=== PATIENT | male | born 1975 | race Caucasian/White ===

== ENCOUNTER 2017-08-19 18:33 | Inpatient (IN) | payer MEDICAID, MEDICARE ==
[2017-08-19] MEDS ORDERED: Sodium Chloride 0.9% 1,000 ML IV ONE ×2 (19:20)
[2017-08-19 20:00] LABS: HEMATOCRIT 49.4 % (41.0-60); HEMOGLOBIN 16.8 gm/dL (12-16); LYMPHOCYTE ABSOLUTE 0.3 Th/cmm (1.5-3.0); MANUAL DIFF REQUIRED? YES; MEAN CORPUSCULAR HEMOGLOBIN 29.5 pg (26.0-30.0); MEAN CORPUSCULAR HGB CONC 33.9 pg (28.0-36.0); MEAN PLATELET VOLUME 10.3 fl; MONOCYTE ABSOLUTE 0.1 Th/cmm (0.3-1.0); NEUTROPHILE ABSOLUTE 9.3 Th/cmm (1.8-8.0); PLATELET COUNT 185 Th/cmm (150-400); RED BLOOD COUNT 5.68 Mil/cmm (4.30-5.70); WHITE BLOOD COUNT 9.7 Th/cmm (4.8-10.8)
[2017-08-19 20:13] LABS: INR 0.99 (0.5-1.4); PROTHROMBIN TIME (TEST) 10.3 SECONDS (9.5-11.5)
[2017-08-19 20:17] LABS: ALB/GLOB RATIO 1.3 (1.0-1.8); ALKALINE PHOSPHATASE 108 U/L (34-104); ANION GAP 11.9 (7.0-16.0); BILIRUBIN,TOTAL 0.5 mg/dL (0.3-1.0); BUN - UREA NITROGEN 18 mg/dL (7-25); CALCIUM SERUM 8.9 mg/dL (8.6-10.3); CARBON DIOXIDE 26.1 mEq/L (21.0-31.0); CHLORIDE 106 mEq/L (98-107); CREATININE - SERUM 0.6 mg/dL (0.7-1.3); GFR AFRICAN-AMERICAN > 60.0 ml/min (>90); GFR NON AFRICAN-AMERICAN > 60.0 ml/min; GLUCOSE 104 mg/dL; SGOT 28 U/L (13-39); SGPT/ALT 47 U/L (7-52); SODIUM SERUM 140 mEq/L (136-145); TOTAL PROTEIN,SERUM 7.2 gm/dL (6.0-8.3)
[2017-08-19 20:23] LABS: BAND NEUTROPHILE 3 % (0-10); LYMPHOCYTE 2 % (20-50); MONOCYTE 5 % (2-10); NEUTROPHILS 90 % (40-80)
--- NOTE | 2017-08-19 20:46 | ED Physician Chart ---
ED Chief Complaint/HPI - Patient Information Date Seen:: 08/19/17 Time Seen:: 19:20 Chief Complaint:: coffee ground emesis History of Present Illness:: location: general quality: coffee ground emesis severity: mild, mod duration: one day context: SNF pt with cerebral palsy and profound mental retardation had one episode of rosendo coffee ground emesis while at facility. SNF RN called PCP who advised go to ER for physician examination. medics report stable vital signs during transport to ER. on arrival pt in stable condition, no vomiting observed. pt is awake, moves all four limbs, but is at baseline - nonverbal. looks around the room. reaches toward examiner. occasional facial grimace. mod factors: none assoc s/s: none hx from SNF RN, and medic Allergies:: Allergies Allergy/AdvReac Type Severity Reaction Status Date / Time No Known Allergies Allergy Verified 08/19/17 18:48 Vitals:: Vital Signs - 8 hr 08/19/17 18:34 Temp 98.7 F HR 132 RR 19 BP 127/90 O2 Sat % 95 Historian:: EMS, Other Review:: Nurse's Note Reviewed, EMS run form Reviewed ED Review of Systems - Review of Systems General/Constitutional: No fever Cardio Vascular: No edema Pulmonary: No cough GI: Vomiting G/U: No hematuria Allergic/Immuno: No angioedema Neurological: No seizure ED Past Medical History - Past Medical History Past Medical History: PUD/GERD, Other (profound intellectual disability, cerebral palsy, seizure disorder, microcephaly, osteoporosis, gastrostomy, osteoporosis, hiatal hernia, anemia history) Family History: None Social History: Non Smoker, No Alcohol, No Drug Use, Single, Care Facility Surgical History: PEG/GTube Psychiatricy History: Other Medication: Reviewed Family Medical History - Family Member Mother History Unknown: Yes ED Physical Exam - Physical Examination General/Constitutional: Awake, Well-developed, well-nourished, Alert, No distress, Non-toxic appearing Head: Atraumatic Eyes: Lids, conjuctiva normal, PERRL Skin: Nl inspection, No rash, No skin lesions ENMT: External ears, nose nl Neck: Nontender, No nuchal rigidity, No stridor Respiratory: Nl effort/Exclusion, Clear to Auscultation, No Wheeze/Rhonchi/Rales Cardio Vascular: RRR, No murmur, gallop, rubs, NL S1 S2 GI: No tenderness/rebounding/guarding (pt with soft, scaphoid abdomen, facial grimace is observed during MD examination, abdomen is not rigid. no pelvic roll sign. these findings indicate pt with likely abdominal discomfort, exact cause and intensity unable to assess due to pt baseline neuro status, advise admission and further work up. ) : No CVA tenderness Extremities: No tenderness or effusion, No edema Neuro/Psych: Alert/oriented (alert, not oriented. non verbal) Misc: No paraspinal tenderness ED Labs/Radiology/EKG Results - Lab Results Results: Laboratory Tests 08/19/17 08/19/17 08/19/17 19:53 19:53 19:53 WBC 9.7 RBC 5.68 Hgb 16.8 Hct 49.4 MCV 87.0 MCH 29.5 MCHC Differential 33.9 RDW 12.0 Plt Count 185 MPV 10.3 Band Neutrophils % 3 Neutrophils (Manual) 90 H Lymphocytes 2 L Monocytes 5 PT 10.3 INR 0.99 Sodium 140 Potassium 4.0 Chloride 106 Carbon Dioxide 26.1 Anion Gap 11.9 BUN 18 Creatinine 0.6 L Est GFR ( Amer) > 60.0 Est GFR (Non-Af Amer) > 60.0 BUN/Creatinine Ratio 30.0 Glucose 104 Calcium 8.9 Total Bilirubin 0.5 AST 28 ALT 47 Alkaline Phosphatase 108 H Total Protein 7.2 Albumin 4.0 L Globulin 3.2 Albumin/Globulin Ratio 1.3 ED Assessment - Assessment General Assessment: medical decision making pt in stable condition while in ER. this patient poses difficulty in assessment due to severe mental retardation. unable to communicate with patient to assess for abdominal pain, nausea. pt with no vomiting on examination in ER. positive facial grimace on examination of abdomen. facial grimace on abdominal exam combined with reports of episode of coffee ground emesis in patient of this type warrants further evaluation. will advise admission and further evaluation. ED Septic Shock - . Is Septic Shock (SBP<90, OR Lactate>4 mmol\L) present?: No - <6hrs of presentation: Vital Signs: Vital Signs - 8 hr 08/19/17 18:34 Temp 98.7 F HR 132 RR 19 BP 127/90 O2 Sat % 95 ED Reassessment (Disposition) - Reassessment Reassessment:: pt in stable condition while in ER. Reassessment Condition:: Unchanged - Diagnosis Diagnosis:: upper GI bleed - Patient Disposition Discharge/Transfer:: Acute Care w/in this hosp Admitting Medical Physician:: Hai Centeno Time:: 20:55 Condition at Disposition:: Stable, Unchanged
[2017-08-19] MEDS ORDERED: Fleet Enema 135 mL RC PRN ×2 (22:37)
[2017-08-19] MEDS ORDERED: Magnesium Hydroxide (MOM) 30 mL UDC GT PRN ×2 (22:37)
[2017-08-19] MEDS ORDERED: Morphine Sulfate 2 mg/mL 1mL Syr IVP PRN ×2 (22:39)
[2017-08-19] MEDS: D5-0.45NS 1,000 ML IV SCH ×2 (23:57)
[2017-08-20 00:39] VITALS: BP 128/66
[2017-08-20] MEDS ORDERED: Pneumococcal Vaccine 0.5 mL Vial IM ONE ×2 (01:39)
[2017-08-20 06:22] LABS: % BASOPHILS 0.1 % (0.0-2.0); % EOSINOPHILS 0.6 % (0.0-5.0); % LYMPHOCYTES 13.4 % (20.0-50.0); % MONOCYTES 9.2 % (2.0-10.0); % NEUTROPHILS 76.7 % (40.0-80.0); HEMATOCRIT 47.7 % (41.0-60); HEMOGLOBIN 16.2 gm/dL (12-16); LYMPHOCYTE ABSOLUTE 0.8 Th/cmm (1.5-3.0); MEAN CELL VOLUME 87.4 fl (80-99); MEAN CORPUSCULAR HEMOGLOBIN 29.6 pg (26.0-30.0); MEAN CORPUSCULAR HGB CONC 33.8 pg (28.0-36.0); MEAN PLATELET VOLUME 10.1 fl; MONOCYTE ABSOLUTE 0.5 Th/cmm (0.3-1.0); NEUTROPHILE ABSOLUTE 4.3 Th/cmm (1.8-8.0); PLATELET COUNT 173 Th/cmm (150-400); RED BLOOD COUNT 5.46 Mil/cmm (4.30-5.70); RED CELL DISTRIBUTION WIDTH 12.5 % (11.5-20.0)
[2017-08-20 06:23] LABS: WHITE BLOOD COUNT 5.6 Th/cmm (4.8-10.8)
[2017-08-20 06:42] LABS: ANION GAP 9.3 (7.0-16.0); BUN - UREA NITROGEN 15 mg/dL (7-25); CALCIUM SERUM 8.3 mg/dL (8.6-10.3); CARBON DIOXIDE 21.4 mEq/L (21.0-31.0); CHLORIDE 107 mEq/L (98-107); CREATININE - SERUM 0.7 mg/dL (0.7-1.3); GFR AFRICAN-AMERICAN > 60.0 ml/min (>90); GFR NON AFRICAN-AMERICAN > 60.0 ml/min; GLUCOSE 116 mg/dL; MAGNESIUM 2.3 mg/dL (1.9-2.7); POTASSIUM SERUM 3.7 mEq/L (3.5-5.1); SODIUM SERUM 134 mEq/L (136-145)
--- NOTE | 2017-08-20 08:09 | Diagnostic Imaging Report ---
CHEST X-RAY: AP view INDICATION: Cough amount in the cysts COMPARISON: None FINDINGS: Small right effusion is noted. Low lung volumes are seen with increased interstitial lung markings and left midlung subsegmental atelectasis. Cardiomegaly is noted. No patient is rotated. Degenerative changes of the spine and shoulders are noted. IMPRESSION: Small right pleural effusion. Atelectasis versus infiltrate of the right lung base cannot be excluded. Cardiomegaly.
[2017-08-20] MEDS: Multivitamin w/ Minerals Tab GT SCH ×2 (08:42)
[2017-08-20] MEDS: Ferrous Sulfate 300 MG/5 ML UDC GT SCH ×2 (08:42)
[2017-08-20] MEDS ORDERED: [UNRECOGNIZED DRUG - OTHER] GT SCH ×2 (09:00)
--- NOTE | 2017-08-20 10:51 | Internal Medicine Prog Note ---
Internal Medicine Subjective - Subjective Service Date: 08/20/17 ([id number]) Internal Medicine Objective - Results Result Diagrams: 08/20/17 06:00 08/20/17 06:00 Recent Labs: Laboratory Last Values WBC 5.6 Th/cmm (4.8-10.8) D 08/20/17 06:00 RBC 5.46 Mil/cmm (4.30-5.70) 08/20/17 06:00 Hgb 16.2 gm/dL (12-16) 08/20/17 06:00 Hct 47.7 % (41.0-60) 08/20/17 06:00 MCV 87.4 fl (80-99) 08/20/17 06:00 MCH 29.6 pg (26.0-30.0) 08/20/17 06:00 MCHC Differential 33.8 pg (28.0-36.0) 08/20/17 06:00 RDW 12.5 % (11.5-20.0) 08/20/17 06:00 Plt Count 173 Th/cmm (150-400) 08/20/17 06:00 MPV 10.1 fl 08/20/17 06:00 Neutrophils % 76.7 % (40.0-80.0) 08/20/17 06:00 Band Neutrophils % 3 % (0-10) 08/19/17 19:53 Lymphocytes % 13.4 % (20.0-50.0) L 08/20/17 06:00 Monocytes % 9.2 % (2.0-10.0) 08/20/17 06:00 Eosinophils % 0.6 % (0.0-5.0) 08/20/17 06:00 Basophils % 0.1 % (0.0-2.0) 08/20/17 06:00 Neutrophils (Manual) 90 % (40-80) H 08/19/17 19:53 Lymphocytes 2 % (20-50) L 08/19/17 19:53 Monocytes 5 % (2-10) 08/19/17 19:53 PT 10.3 SECONDS (9.5-11.5) 08/19/17 19:53 INR 0.99 (0.5-1.4) 08/19/17 19:53 Sodium 134 mEq/L (136-145) L 08/20/17 06:00 Potassium 3.7 mEq/L (3.5-5.1) 08/20/17 06:00 Chloride 107 mEq/L (98-107) 08/20/17 06:00 Carbon Dioxide 21.4 mEq/L (21.0-31.0) 08/20/17 06:00 Anion Gap 9.3 (7.0-16.0) 08/20/17 06:00 BUN 15 mg/dL (7-25) 08/20/17 06:00 Creatinine 0.7 mg/dL (0.7-1.3) 08/20/17 06:00 Est GFR ( Amer) > 60.0 ml/min (>90) 08/20/17 06:00 Est GFR (Non-Af Amer) > 60.0 ml/min 08/20/17 06:00 BUN/Creatinine Ratio 21.4 08/20/17 06:00 Glucose 116 mg/dL 08/20/17 06:00 Calcium 8.3 mg/dL (8.6-10.3) L 08/20/17 06:00 Magnesium 2.3 mg/dL (1.9-2.7) 08/20/17 06:00 Total Bilirubin 0.5 mg/dL (0.3-1.0) 08/19/17 19:53 AST 28 U/L (13-39) 08/19/17 19:53 ALT 47 U/L (7-52) 08/19/17 19:53 Alkaline Phosphatase 108 U/L (34-104) H 08/19/17 19:53 Total Protein 7.2 gm/dL (6.0-8.3) 08/19/17 19:53 Albumin 4.0 gm/dL (4.2-5.5) L 08/19/17 19:53 Globulin 3.2 gm/dL 08/19/17 19:53 Albumin/Globulin Ratio 1.3 (1.0-1.8) 08/19/17 19:53 TSH 0.85 uIU/ml (0.34-5.60) 08/20/17 06:00 - Physical Exam Vitals and I&O: Vital Signs Temp 97.3 F 08/20/17 08:00 Pulse 114 08/20/17 08:00 Resp 18 08/20/17 08:09 BP 115/62 08/20/17 08:00 Pulse Ox 91 08/20/17 08:00 Intake & Output 08/19/17 08/20/17 08/20/17 18:59 06:59 18:59 Intake Total 0 Balance 0 Weight (lbs) 123 lb Intake: Oral 0 Other: # Voids 2 Active Medications: Current Medications Acetaminophen (Tylenol 650mg/20.3ml Suspension) 650 mg GT Q4H PRN PRN Reason: Pain (Mild) Stop: 10/18/17 23:11 Acetaminophen (Tylenol 650mg/20.3ml Suspension) 650 mg GT Q4H PRN PRN Reason: Fever > 101 Stop: 10/18/17 23:11 Alendronate Sodium (Fosamax) 70 mg PO QWEEK 729 [facility] Stop: 10/18/17 22:44 Ascorbic Acid (Vitamin C) 500 mg PO BID [facility] Stop: 10/19/17 08:59 Last Admin: 08/20/17 08:42 Dose: Not Given Bisacodyl (Dulcolax 10 Mg Supp) 10 mg RC DAILY PRN PRN Reason: Constipation Stop: 10/18/17 22:36 Ferrous Sulfate (Iron) 220 mg GT DAILY [facility] Stop: 10/19/17 08:59 Last Admin: 08/20/17 08:42 Dose: Not Given Glycopyrrolate (Robinul) 1 mg PO BID [facility] Stop: 10/19/17 08:59 Last Admin: 08/20/17 08:42 Dose: Not Given Dextrose/Sodium Chloride (D5-0.45ns) 1,000 mls @ 80 mls/hr IV .[id number] [facility] Stop: 10/18/17 22:44 Last Admin: 08/19/17 23:57 Dose: 80 mls/hr Magnesium Hydroxide (Milk Of Magnesia) 30 ml GT DAILY PRN PRN Reason: Constipation Stop: 10/18/17 22:36 Metoclopramide HCl (Reglan) 5 mg PO TID [facility] Stop: 08/26/17 13:59 Miscellaneous (Nut.Sup,Spec.Frm,L-Fr,Iron/Fos [Twocal Hn Liquid]) 1,000 ml GT DAILY [facility] Stop: 10/19/17 08:59 Morphine Sulfate (Morphine) 2 mg IVP Q4H PRN PRN Reason: Pain (Severe) Stop: 10/18/17 22:38 Ondansetron HCl (Zofran) 4 mg IV Q8H PRN PRN Reason: Nausea / Vomiting Stop: 10/18/17 22:38 Oxcarbazepine (Trileptal) 600 mg GT BID [facility] Stop: 10/19/17 08:59 Last Admin: 08/20/17 08:43 Dose: Not Given Pantoprazole Sodium (Protonix) 40 mg IVP BID [facility] Stop: 10/19/17 08:59 Last Admin: 08/20/17 08:42 Dose: 40 mg Polyethylene Glycol (Miralax) 17 gm GT QPM [facility] Stop: 10/19/17 16:59 Sodium Phosphate (Fleet Enema) 135 ml RC DAILY PRN PRN Reason: Constipation Stop: 10/18/17 22:36 - Procedures Procedures: Procedures Procedure Code Date CHANGE GASTROSTOMY TUBE 29667 12/15/01 REPLACE GASTROSTOMY TUBE 97.02 12/15/01 Internal Medicine Assmt/Plan - Assessment Assessment: HEALTHCARE FACILITY ASSOCIATED PNA ACUTE GI BLEED ANEMIA CEREBRAL PALSY SEIZURES OSTEOPOROSIS HIATAL HERNIA GERD
--- NOTE | 2017-08-20 10:51 | Internal Medicine Prog Note ---
Internal Medicine Subjective - Subjective Service Date: 08/20/17 ([id number]) Internal Medicine Objective - Results Result Diagrams: 08/20/17 06:00 08/20/17 06:00 Recent Labs: Laboratory Last Values WBC 5.6 Th/cmm (4.8-10.8) D 08/20/17 06:00 RBC 5.46 Mil/cmm (4.30-5.70) 08/20/17 06:00 Hgb 16.2 gm/dL (12-16) 08/20/17 06:00 Hct 47.7 % (41.0-60) 08/20/17 06:00 MCV 87.4 fl (80-99) 08/20/17 06:00 MCH 29.6 pg (26.0-30.0) 08/20/17 06:00 MCHC Differential 33.8 pg (28.0-36.0) 08/20/17 06:00 RDW 12.5 % (11.5-20.0) 08/20/17 06:00 Plt Count 173 Th/cmm (150-400) 08/20/17 06:00 MPV 10.1 fl 08/20/17 06:00 Neutrophils % 76.7 % (40.0-80.0) 08/20/17 06:00 Band Neutrophils % 3 % (0-10) 08/19/17 19:53 Lymphocytes % 13.4 % (20.0-50.0) L 08/20/17 06:00 Monocytes % 9.2 % (2.0-10.0) 08/20/17 06:00 Eosinophils % 0.6 % (0.0-5.0) 08/20/17 06:00 Basophils % 0.1 % (0.0-2.0) 08/20/17 06:00 Neutrophils (Manual) 90 % (40-80) H 08/19/17 19:53 Lymphocytes 2 % (20-50) L 08/19/17 19:53 Monocytes 5 % (2-10) 08/19/17 19:53 PT 10.3 SECONDS (9.5-11.5) 08/19/17 19:53 INR 0.99 (0.5-1.4) 08/19/17 19:53 Sodium 134 mEq/L (136-145) L 08/20/17 06:00 Potassium 3.7 mEq/L (3.5-5.1) 08/20/17 06:00 Chloride 107 mEq/L (98-107) 08/20/17 06:00 Carbon Dioxide 21.4 mEq/L (21.0-31.0) 08/20/17 06:00 Anion Gap 9.3 (7.0-16.0) 08/20/17 06:00 BUN 15 mg/dL (7-25) 08/20/17 06:00 Creatinine 0.7 mg/dL (0.7-1.3) 08/20/17 06:00 Est GFR ( Amer) > 60.0 ml/min (>90) 08/20/17 06:00 Est GFR (Non-Af Amer) > 60.0 ml/min 08/20/17 06:00 BUN/Creatinine Ratio 21.4 08/20/17 06:00 Glucose 116 mg/dL 08/20/17 06:00 Calcium 8.3 mg/dL (8.6-10.3) L 08/20/17 06:00 Magnesium 2.3 mg/dL (1.9-2.7) 08/20/17 06:00 Total Bilirubin 0.5 mg/dL (0.3-1.0) 08/19/17 19:53 AST 28 U/L (13-39) 08/19/17 19:53 ALT 47 U/L (7-52) 08/19/17 19:53 Alkaline Phosphatase 108 U/L (34-104) H 08/19/17 19:53 Total Protein 7.2 gm/dL (6.0-8.3) 08/19/17 19:53 Albumin 4.0 gm/dL (4.2-5.5) L 08/19/17 19:53 Globulin 3.2 gm/dL 08/19/17 19:53 Albumin/Globulin Ratio 1.3 (1.0-1.8) 08/19/17 19:53 TSH 0.85 uIU/ml (0.34-5.60) 08/20/17 06:00 - Physical Exam Vitals and I&O: Vital Signs Temp 97.3 F 08/20/17 08:00 Pulse 114 08/20/17 08:00 Resp 18 08/20/17 08:09 BP 115/62 08/20/17 08:00 Pulse Ox 91 08/20/17 08:00 Intake & Output 08/19/17 08/20/17 08/20/17 18:59 06:59 18:59 Intake Total 0 Balance 0 Weight (lbs) 123 lb Intake: Oral 0 Other: # Voids 2 Active Medications: Current Medications Acetaminophen (Tylenol 650mg/20.3ml Suspension) 650 mg GT Q4H PRN PRN Reason: Pain (Mild) Stop: 10/18/17 23:11 Acetaminophen (Tylenol 650mg/20.3ml Suspension) 650 mg GT Q4H PRN PRN Reason: Fever > 101 Stop: 10/18/17 23:11 Alendronate Sodium (Fosamax) 70 mg PO QWEEK 729 [facility] Stop: 10/18/17 22:44 Ascorbic Acid (Vitamin C) 500 mg PO BID [facility] Stop: 10/19/17 08:59 Last Admin: 08/20/17 08:42 Dose: Not Given Bisacodyl (Dulcolax 10 Mg Supp) 10 mg RC DAILY PRN PRN Reason: Constipation Stop: 10/18/17 22:36 Ferrous Sulfate (Iron) 220 mg GT DAILY [facility] Stop: 10/19/17 08:59 Last Admin: 08/20/17 08:42 Dose: Not Given Glycopyrrolate (Robinul) 1 mg PO BID [facility] Stop: 10/19/17 08:59 Last Admin: 08/20/17 08:42 Dose: Not Given Dextrose/Sodium Chloride (D5-0.45ns) 1,000 mls @ 80 mls/hr IV .[id number] [facility] Stop: 10/18/17 22:44 Last Admin: 08/19/17 23:57 Dose: 80 mls/hr Magnesium Hydroxide (Milk Of Magnesia) 30 ml GT DAILY PRN PRN Reason: Constipation Stop: 10/18/17 22:36 Metoclopramide HCl (Reglan) 5 mg PO TID [facility] Stop: 08/26/17 13:59 Miscellaneous (Nut.Sup,Spec.Frm,L-Fr,Iron/Fos [Twocal Hn Liquid]) 1,000 ml GT DAILY [facility] Stop: 10/19/17 08:59 Morphine Sulfate (Morphine) 2 mg IVP Q4H PRN PRN Reason: Pain (Severe) Stop: 10/18/17 22:38 Ondansetron HCl (Zofran) 4 mg IV Q8H PRN PRN Reason: Nausea / Vomiting Stop: 10/18/17 22:38 Oxcarbazepine (Trileptal) 600 mg GT BID [facility] Stop: 10/19/17 08:59 Last Admin: 08/20/17 08:43 Dose: Not Given Pantoprazole Sodium (Protonix) 40 mg IVP BID [facility] Stop: 10/19/17 08:59 Last Admin: 08/20/17 08:42 Dose: 40 mg Polyethylene Glycol (Miralax) 17 gm GT QPM [facility] Stop: 10/19/17 16:59 Sodium Phosphate (Fleet Enema) 135 ml RC DAILY PRN PRN Reason: Constipation Stop: 10/18/17 22:36 - Procedures Procedures: Procedures Procedure Code Date CHANGE GASTROSTOMY TUBE 97579 12/15/01 REPLACE GASTROSTOMY TUBE 97.02 12/15/01 Internal Medicine Assmt/Plan - Assessment Assessment: HEALTHCARE FACILITY ASSOCIATED PNA ACUTE GI BLEED ANEMIA CEREBRAL PALSY SEIZURES OSTEOPOROSIS HIATAL HERNIA GERD
--- NOTE | 2017-08-20 10:51 | Internal Medicine Prog Note ---
Internal Medicine Subjective - Subjective Service Date: 08/20/17 ([id number]) Internal Medicine Objective - Results Result Diagrams: 08/20/17 06:00 08/20/17 06:00 Recent Labs: Laboratory Last Values WBC 5.6 Th/cmm (4.8-10.8) D 08/20/17 06:00 RBC 5.46 Mil/cmm (4.30-5.70) 08/20/17 06:00 Hgb 16.2 gm/dL (12-16) 08/20/17 06:00 Hct 47.7 % (41.0-60) 08/20/17 06:00 MCV 87.4 fl (80-99) 08/20/17 06:00 MCH 29.6 pg (26.0-30.0) 08/20/17 06:00 MCHC Differential 33.8 pg (28.0-36.0) 08/20/17 06:00 RDW 12.5 % (11.5-20.0) 08/20/17 06:00 Plt Count 173 Th/cmm (150-400) 08/20/17 06:00 MPV 10.1 fl 08/20/17 06:00 Neutrophils % 76.7 % (40.0-80.0) 08/20/17 06:00 Band Neutrophils % 3 % (0-10) 08/19/17 19:53 Lymphocytes % 13.4 % (20.0-50.0) L 08/20/17 06:00 Monocytes % 9.2 % (2.0-10.0) 08/20/17 06:00 Eosinophils % 0.6 % (0.0-5.0) 08/20/17 06:00 Basophils % 0.1 % (0.0-2.0) 08/20/17 06:00 Neutrophils (Manual) 90 % (40-80) H 08/19/17 19:53 Lymphocytes 2 % (20-50) L 08/19/17 19:53 Monocytes 5 % (2-10) 08/19/17 19:53 PT 10.3 SECONDS (9.5-11.5) 08/19/17 19:53 INR 0.99 (0.5-1.4) 08/19/17 19:53 Sodium 134 mEq/L (136-145) L 08/20/17 06:00 Potassium 3.7 mEq/L (3.5-5.1) 08/20/17 06:00 Chloride 107 mEq/L (98-107) 08/20/17 06:00 Carbon Dioxide 21.4 mEq/L (21.0-31.0) 08/20/17 06:00 Anion Gap 9.3 (7.0-16.0) 08/20/17 06:00 BUN 15 mg/dL (7-25) 08/20/17 06:00 Creatinine 0.7 mg/dL (0.7-1.3) 08/20/17 06:00 Est GFR ( Amer) > 60.0 ml/min (>90) 08/20/17 06:00 Est GFR (Non-Af Amer) > 60.0 ml/min 08/20/17 06:00 BUN/Creatinine Ratio 21.4 08/20/17 06:00 Glucose 116 mg/dL 08/20/17 06:00 Calcium 8.3 mg/dL (8.6-10.3) L 08/20/17 06:00 Magnesium 2.3 mg/dL (1.9-2.7) 08/20/17 06:00 Total Bilirubin 0.5 mg/dL (0.3-1.0) 08/19/17 19:53 AST 28 U/L (13-39) 08/19/17 19:53 ALT 47 U/L (7-52) 08/19/17 19:53 Alkaline Phosphatase 108 U/L (34-104) H 08/19/17 19:53 Total Protein 7.2 gm/dL (6.0-8.3) 08/19/17 19:53 Albumin 4.0 gm/dL (4.2-5.5) L 08/19/17 19:53 Globulin 3.2 gm/dL 08/19/17 19:53 Albumin/Globulin Ratio 1.3 (1.0-1.8) 08/19/17 19:53 TSH 0.85 uIU/ml (0.34-5.60) 08/20/17 06:00 - Physical Exam Vitals and I&O: Vital Signs Temp 97.3 F 08/20/17 08:00 Pulse 114 08/20/17 08:00 Resp 18 08/20/17 08:09 BP 115/62 08/20/17 08:00 Pulse Ox 91 08/20/17 08:00 Intake & Output 08/19/17 08/20/17 08/20/17 18:59 06:59 18:59 Intake Total 0 Balance 0 Weight (lbs) 123 lb Intake: Oral 0 Other: # Voids 2 Active Medications: Current Medications Acetaminophen (Tylenol 650mg/20.3ml Suspension) 650 mg GT Q4H PRN PRN Reason: Pain (Mild) Stop: 10/18/17 23:11 Acetaminophen (Tylenol 650mg/20.3ml Suspension) 650 mg GT Q4H PRN PRN Reason: Fever > 101 Stop: 10/18/17 23:11 Alendronate Sodium (Fosamax) 70 mg PO QWEEK 729 [facility] Stop: 10/18/17 22:44 Ascorbic Acid (Vitamin C) 500 mg PO BID [facility] Stop: 10/19/17 08:59 Last Admin: 08/20/17 08:42 Dose: Not Given Bisacodyl (Dulcolax 10 Mg Supp) 10 mg RC DAILY PRN PRN Reason: Constipation Stop: 10/18/17 22:36 Ferrous Sulfate (Iron) 220 mg GT DAILY [facility] Stop: 10/19/17 08:59 Last Admin: 08/20/17 08:42 Dose: Not Given Glycopyrrolate (Robinul) 1 mg PO BID [facility] Stop: 10/19/17 08:59 Last Admin: 08/20/17 08:42 Dose: Not Given Dextrose/Sodium Chloride (D5-0.45ns) 1,000 mls @ 80 mls/hr IV .[id number] [facility] Stop: 10/18/17 22:44 Last Admin: 08/19/17 23:57 Dose: 80 mls/hr Magnesium Hydroxide (Milk Of Magnesia) 30 ml GT DAILY PRN PRN Reason: Constipation Stop: 10/18/17 22:36 Metoclopramide HCl (Reglan) 5 mg PO TID [facility] Stop: 08/26/17 13:59 Miscellaneous (Nut.Sup,Spec.Frm,L-Fr,Iron/Fos [Twocal Hn Liquid]) 1,000 ml GT DAILY [facility] Stop: 10/19/17 08:59 Morphine Sulfate (Morphine) 2 mg IVP Q4H PRN PRN Reason: Pain (Severe) Stop: 10/18/17 22:38 Ondansetron HCl (Zofran) 4 mg IV Q8H PRN PRN Reason: Nausea / Vomiting Stop: 10/18/17 22:38 Oxcarbazepine (Trileptal) 600 mg GT BID [facility] Stop: 10/19/17 08:59 Last Admin: 08/20/17 08:43 Dose: Not Given Pantoprazole Sodium (Protonix) 40 mg IVP BID [facility] Stop: 10/19/17 08:59 Last Admin: 08/20/17 08:42 Dose: 40 mg Polyethylene Glycol (Miralax) 17 gm GT QPM [facility] Stop: 10/19/17 16:59 Sodium Phosphate (Fleet Enema) 135 ml RC DAILY PRN PRN Reason: Constipation Stop: 10/18/17 22:36 - Procedures Procedures: Procedures Procedure Code Date CHANGE GASTROSTOMY TUBE 25147 12/15/01 REPLACE GASTROSTOMY TUBE 97.02 12/15/01 Internal Medicine Assmt/Plan - Assessment Assessment: HEALTHCARE FACILITY ASSOCIATED PNA ACUTE GI BLEED ANEMIA CEREBRAL PALSY SEIZURES OSTEOPOROSIS HIATAL HERNIA GERD
--- NOTE | 2017-08-20 12:23 | History & Physical ---
ADMIT DATE: CHIEF COMPLAINT: Coffee-ground emesis. HISTORY OF PRESENT ILLNESS: This is a 42-year-old male who is a resident of [facility] who is brought here to [facility] for 1-day history of coffee-ground emesis. The [facility] not [facility] fevers at the [facility]. For further management, the patient is now admitted to the med/surg unit. PAST MEDICAL HISTORY: Profound intellectual disability, cerebral palsy, history of seizure, microcephaly, osteoporosis, gastrostomy status, mild peptic ulcer disease, GERD, hiatal hernia, and anemia. PAST SURGICAL HISTORY: PEG. SOCIAL HISTORY: The patient is a [facility] resident, requiring 24-hour nursing care. MEDICATIONS: Please see medication reconciliation. FAMILY HISTORY: Noncontributory. REVIEW OF SYSTEMS: Unable to obtain, the patient is nonverbal. PHYSICAL EXAMINATION: GENERAL: The patient is well developed, well nourished, and in no acute stress. VITAL SIGNS: Temperature 97.3, heart rate 114, blood pressure 115/62, respirations 18, and O2 91%. HEENT: Head is normocephalic and atraumatic. NECK: Supple. No mass. LUNGS: Clear bilaterally. ABDOMEN: Soft and nontender. LABORATORY DATA: WBC 5.6, H and H of 16.2 and 47.7, and platelet of 173. Sodium 134, potassium 2.7, chloride 107, BUN 15, and creatinine 0.7. Calcium 8.3 and albumin 4.0. DIAGNOSTIC STUDIES: The patient had a chest x-ray done and the impression is small right pleural effusion, atelectasis versus infiltrate of the right lung base cannot be excluded. ASSESSMENT: Acute gastrointestinal bleed, health-care facility associated pneumonia, hyponatremia, hypocalcemia, profound intellectual disability, cerebral palsy, seizure disorder, microcephaly, osteoporosis, gastrostomy status, gastroesophageal reflux disease, hiatal hernia, and anemia. PLAN: The patient to be admitted to the med/surg unit. We will keep the patient n.p.o. for now. The patient will have a GI consultation. Keep the patient on IV fluids for hydration. We will put the patient on impaired IV antibiotics. We will get a followup chest x-ray. We will continue to follow this patient. [facility]# [id number]
--- NOTE | 2017-08-20 12:23 | History & Physical ---
ADMIT DATE: CHIEF COMPLAINT: Coffee-ground emesis. HISTORY OF PRESENT ILLNESS: This is a 42-year-old male who is a resident of [facility] who is brought here to [facility] for 1-day history of coffee-ground emesis. The patient did not have any fevers at the halfway. For further management, the patient is now admitted to the med/surg unit. PAST MEDICAL HISTORY: Profound intellectual disability, cerebral palsy, history of seizure, microcephaly, osteoporosis, gastrostomy status, mild peptic ulcer disease, GERD, hiatal hernia, and anemia. PAST SURGICAL HISTORY: PEG. SOCIAL HISTORY: The patient is a halfway resident, requiring 24-hour nursing care. MEDICATIONS: Please see medication reconciliation. FAMILY HISTORY: Noncontributory. REVIEW OF SYSTEMS: Unable to obtain, the patient is nonverbal. PHYSICAL EXAMINATION: GENERAL: The patient is well developed, well nourished, and in no acute stress. VITAL SIGNS: Temperature 97.3, heart rate 114, blood pressure 115/62, respirations 18, and O2 91%. HEENT: Head is normocephalic and atraumatic. NECK: Supple. No mass. LUNGS: Clear bilaterally. ABDOMEN: Soft and nontender. LABORATORY DATA: WBC 5.6, H and H of 16.2 and 47.7, and platelet of 173. Sodium 134, potassium 2.7, chloride 107, BUN 15, and creatinine 0.7. Calcium 8.3 and albumin 4.0. DIAGNOSTIC STUDIES: The patient had a chest x-ray done and the impression is small right pleural effusion, atelectasis versus infiltrate of the right lung base cannot be excluded. ASSESSMENT: Acute gastrointestinal bleed, health-care facility associated pneumonia, hyponatremia, hypocalcemia, profound intellectual disability, cerebral palsy, seizure disorder, microcephaly, osteoporosis, gastrostomy status, gastroesophageal reflux disease, hiatal hernia, and anemia. PLAN: The patient to be admitted to the med/surg unit. We will keep the patient n.p.o. for now. The patient will have a GI consultation. Keep the patient on IV fluids for hydration. We will put the patient on impaired IV antibiotics. We will get a followup chest x-ray. We will continue to follow this patient. [facility]# [id number]
--- NOTE | 2017-08-20 12:23 | History & Physical ---
ADMIT DATE: CHIEF COMPLAINT: Coffee-ground emesis. HISTORY OF PRESENT ILLNESS: This is a 42-year-old male who is a resident of [facility] who is brought here to [facility] for 1-day history of coffee-ground emesis. The patient did not have any fevers at the senior living. For further management, the patient is now admitted to the med/surg unit. PAST MEDICAL HISTORY: Profound intellectual disability, cerebral palsy, history of seizure, microcephaly, osteoporosis, gastrostomy status, mild peptic ulcer disease, GERD, hiatal hernia, and anemia. PAST SURGICAL HISTORY: PEG. SOCIAL HISTORY: The patient is a senior living resident, requiring 24-hour nursing care. MEDICATIONS: Please see medication reconciliation. FAMILY HISTORY: Noncontributory. REVIEW OF SYSTEMS: Unable to obtain, the patient is nonverbal. PHYSICAL EXAMINATION: GENERAL: The patient is well developed, well nourished, and in no acute stress. VITAL SIGNS: Temperature 97.3, heart rate 114, blood pressure 115/62, respirations 18, and O2 91%. HEENT: Head is normocephalic and atraumatic. NECK: Supple. No mass. LUNGS: Clear bilaterally. ABDOMEN: Soft and nontender. LABORATORY DATA: WBC 5.6, H and H of 16.2 and 47.7, and platelet of 173. Sodium 134, potassium 2.7, chloride 107, BUN 15, and creatinine 0.7. Calcium 8.3 and albumin 4.0. DIAGNOSTIC STUDIES: The patient had a chest x-ray done and the impression is small right pleural effusion, atelectasis versus infiltrate of the right lung base cannot be excluded. ASSESSMENT: Acute gastrointestinal bleed, health-care facility associated pneumonia, hyponatremia, hypocalcemia, profound intellectual disability, cerebral palsy, seizure disorder, microcephaly, osteoporosis, gastrostomy status, gastroesophageal reflux disease, hiatal hernia, and anemia. PLAN: The patient to be admitted to the med/surg unit. We will keep the patient n.p.o. for now. The patient will have a GI consultation. Keep the patient on IV fluids for hydration. We will put the patient on impaired IV antibiotics. We will get a followup chest x-ray. We will continue to follow this patient. [facility]# [id number]
[2017-08-20] MEDS: Azithromycin 500 MG in Sodium Chloride 0.9% 250 ML IV SCH (15:15)
[2017-08-20] MEDS: POLYETHYLENE GLYCOL 3350 17 GM PACK GT SCH ×2 (16:44)
[2017-08-20] MEDS: D5-0.45NS 1,000 ML IV SCH ×2 (18:08)
[2017-08-21] MEDS: D5-0.45NS 1,000 ML IV SCH ×4 (05:34→21:50)
[2017-08-21 06:12] LABS: HEMOGLOBIN 14.5 gm/dL (12-16); MANUAL DIFF REQUIRED? YES
[2017-08-21 06:20] LABS: MEAN CELL VOLUME 87.4 fl (80-99); MEAN CORPUSCULAR HEMOGLOBIN 29.7 pg (26.0-30.0); MEAN PLATELET VOLUME 10.1 fl; PLATELET COUNT 158 Th/cmm (150-400); RED BLOOD COUNT 4.88 Mil/cmm (4.30-5.70); RED CELL DISTRIBUTION WIDTH 12.5 % (11.5-20.0)
[2017-08-21 06:39] LABS: ANION GAP 8.3 (7.0-16.0); BUN - UREA NITROGEN 11 mg/dL (7-25); CALCIUM SERUM 7.6 mg/dL (8.6-10.3); CARBON DIOXIDE 24.3 mEq/L (21.0-31.0); CHLORIDE 108 mEq/L (98-107); CREATININE - SERUM 0.6 mg/dL (0.7-1.3); GFR AFRICAN-AMERICAN > 60.0 ml/min (>90); GFR NON AFRICAN-AMERICAN > 60.0 ml/min; GLUCOSE 109 mg/dL; POTASSIUM SERUM 3.6 mEq/L (3.5-5.1); SODIUM SERUM 137 mEq/L (136-145)
--- NOTE | 2017-08-21 06:42 | Consultation ---
DATE OF CONSULTATION: 08/20/2017 INPATIENT GI CONSULTATION CONSULTING PHYSICIAN: Dr. Centeno. REASON FOR CONSULTATION: Coffee-ground emesis. HISTORY OF PRESENT ILLNESS: The patient is a 42-year-old male with history of cerebral palsy and seizure disorder and developmental delay, who comes into the hospital with reported coffee-ground emesis yesterday. Most of the history is obtained from the patient's mother and the chart and the nursing staff as the patient is unable to communicate. There is a report that the patient had a large amount of vomiting yesterday and that there was a coffee-ground color to this. Thus, the patient was admitted to the hospital for further evaluation. There is no history of melena or blood in the stool as per report. Of note, the patient does have a G-tube and is dependent on this for feeds. PAST MEDICAL HISTORY: Cerebral palsy, acid reflux by report, seizure disorder. PAST SURGICAL HISTORY: G-tube placement. FAMILY HISTORY: Noncontributory. ALLERGIES: No known drug allergies. SOCIAL HISTORY: The patient is a permanent resident of a nursing facility. There is no history of alcohol or drug use. REVIEW OF SYSTEMS: Not possible given the patient's reduced mental status. CURRENT MEDICATIONS: Tylenol as needed, Fosamax, vitamin C, bisacodyl, iron, Robinul, milk of magnesia, morphine as needed, Zofran as needed, Trileptal, Protonix b.i.d., MiraLax. PHYSICAL EXAMINATION: VITAL SIGNS: The temperature is 97.2 Fahrenheit, blood pressure 128/66, pulse is 120 beats per minute, oxygenation 94% on room air. GENERAL: The patient is lying on his side in bed, noncommunicative, alert and oriented x 0. HEAD, EARS, EYES, NOSE, AND THROAT: Pupils appeared equal and reactive to light. Extraocular muscles are intact. Moist mucous membranes. Microcephaly is noted. NECK: No obvious JVD, thyromegaly, or lymphadenopathy. CHEST: Clear to auscultation. CARDIOVASCULAR: S1 and S2 are present, regular rate and rhythm. ABDOMEN: There is a G-tube which the site is clean and dry and intact. There is no obvious tenderness to palpation, guarding, or rebound. No distention. EXTREMITIES: No pitting edema. Positive pulses. SKIN: No obvious jaundice or other rashes. LABORATORY DATA: White blood cell count 9.7, hemoglobin 16.8, platelet count 185. INR 0.9. Sodium 140, BUN 18, creatinine 0.6. AST 28, ALT 47, alkaline phosphatase is 108, total bilirubin 0.5. IMAGING: A chest x-ray was performed and showed small right pleural effusion, atelectasis of the right lung cannot be excluded, cardiomegaly. IMPRESSION: This is a 42-year-old male with cerebral palsy, developmental delay and seizure disorder, who comes into the hospital with one day of vomiting and coffee-ground emesis. 1. Coffee-ground emesis. 2. Seizure disorder. 3. Cerebral palsy. 4. History of developmental delay. 5. History of G-tube dependence. DISCUSSION: I had a discussion with this patient's mother about the possibility of doing endoscopy. At this point, she wants to pursue conservative measures given the patient's hemoglobin is stable and he has no further episodes of any vomiting. She wants to spare her son any invasive procedures if possible. If the patient does exhibit any sign of further bleeding or has a significant drop in his hemoglobin level, she would then be okay to pursue endoscopy. At this point, we will not plan on this. RECOMMENDATIONS: 1. We can treat the patient for presumed esophagitis or peptic ulcer disease with b.i.d. PPI therapy for 1 month and then daily after that. 2. Can resume G-tube feeding at a slow rate now and increase as tolerated. 3. We will put the patient on an antiemetic to encourage gastric motility and prevent vomiting. We will likely use Reglan. 4. Other care as per primary. Thank you for allowing me to participate in this patient's care. Please call with any further questions. JOB# [id number]
[2017-08-21 07:05] LABS: WHITE BLOOD COUNT 3.3 Th/cmm (4.8-10.8)
[2017-08-21 07:47] LABS: BAND NEUTROPHILE 3 % (0-10); EOSINOPHIL 4 % (0-5); LYMPHOCYTE 31 % (20-50); MONOCYTE 8 % (2-10); NEUTROPHILS 54 % (40-80); TOTAL CELLS COUNTED 100
[2017-08-21 07:48] LABS: HEMATOCRIT 42.6 % (41.0-60)
--- NOTE | 2017-08-21 08:08 | GI Progress Note ---
Subjective - Review of Systems Service Date: 08/21/17 Subjective: Report of vomiting 30cc last night, non bloody. Objective - Results Result Diagrams: 08/21/17 05:55 08/21/17 05:55 Recent Labs: Laboratory Last Values WBC 3.3 Th/cmm (4.8-10.8) L D 08/21/17 05:55 RBC 4.88 Mil/cmm (4.30-5.70) 08/21/17 05:55 Hgb 14.5 gm/dL (12-16) 08/21/17 05:55 Hct 42.6 % (41.0-60) D 08/21/17 05:55 MCV 87.4 fl (80-99) 08/21/17 05:55 MCH 29.7 pg (26.0-30.0) 08/21/17 05:55 MCHC Differential 34.0 pg (28.0-36.0) 08/21/17 05:55 RDW 12.5 % (11.5-20.0) 08/21/17 05:55 Plt Count 158 Th/cmm (150-400) 08/21/17 05:55 MPV 10.1 fl 08/21/17 05:55 Neutrophils % DINKEY LOCOMOTIVE OPERATOR 08/21/17 05:55 Band Neutrophils % 3 % (0-10) 08/21/17 05:55 Lymphocytes % DINKEY LOCOMOTIVE OPERATOR 08/21/17 05:55 Monocytes % DINKEY LOCOMOTIVE OPERATOR 08/21/17 05:55 Eosinophils % DINKEY LOCOMOTIVE OPERATOR 08/21/17 05:55 Basophils % DINKEY LOCOMOTIVE OPERATOR 08/21/17 05:55 Neutrophils (Manual) 54 % (40-80) 08/21/17 05:55 Lymphocytes 31 % (20-50) 08/21/17 05:55 Monocytes 8 % (2-10) 08/21/17 05:55 Eosinophils 4 % (0-5) 08/21/17 05:55 PT 10.3 SECONDS (9.5-11.5) 08/19/17 19:53 INR 0.99 (0.5-1.4) 08/19/17 19:53 Sodium 137 mEq/L (136-145) 08/21/17 05:55 Potassium 3.6 mEq/L (3.5-5.1) 08/21/17 05:55 Chloride 108 mEq/L (98-107) H 08/21/17 05:55 Carbon Dioxide 24.3 mEq/L (21.0-31.0) 08/21/17 05:55 Anion Gap 8.3 (7.0-16.0) 08/21/17 05:55 BUN 11 mg/dL (7-25) 08/21/17 05:55 Creatinine 0.6 mg/dL (0.7-1.3) L 08/21/17 05:55 Est GFR ( Amer) > 60.0 ml/min (>90) 08/21/17 05:55 Est GFR (Non-Af Amer) > 60.0 ml/min 08/21/17 05:55 BUN/Creatinine Ratio 18.3 08/21/17 05:55 Glucose 109 mg/dL 08/21/17 05:55 Calcium 7.6 mg/dL (8.6-10.3) L 08/21/17 05:55 Magnesium 2.3 mg/dL (1.9-2.7) 08/20/17 06:00 Total Bilirubin 0.5 mg/dL (0.3-1.0) 08/19/17 19:53 AST 28 U/L (13-39) 08/19/17 19:53 ALT 47 U/L (7-52) 08/19/17 19:53 Alkaline Phosphatase 108 U/L (34-104) H 08/19/17 19:53 Total Protein 7.2 gm/dL (6.0-8.3) 08/19/17 19:53 Albumin 4.0 gm/dL (4.2-5.5) L 08/19/17 19:53 Globulin 3.2 gm/dL 08/19/17 19:53 Albumin/Globulin Ratio 1.3 (1.0-1.8) 08/19/17 19:53 TSH 0.85 uIU/ml (0.34-5.60) 08/20/17 06:00 - Physical Exam Vitals and I&O: Vital Signs Temp 97.4 F 08/21/17 04:00 Pulse 101 08/21/17 04:00 Resp 19 08/21/17 04:00 BP 104/68 08/21/17 04:00 Pulse Ox 97 08/21/17 04:00 Intake & Output 11/04/2908/21/17 08/21/17 18:59 06:59 18:59 Intake Total 1590 1154.667 Output Total 400 Balance 1590 754.667 Weight (lbs) 55.792 kg 57.153 kg Intake: Intake, IV Amount 1250 914.667 Azithromycin 500 mg In 250 Sodium Chloride 0.9% 250 ml @ 250 mls/hr IV Q24HR [facility] Rx#:[id number] D5-0.45NS 1,000 ml @ 80 1000 914.667 mls/hr IV .[id number] [facility] Rx #:[id number] Tube Feeding 340 240 Output: Urine 400 Stool 0 Other: # Voids 2 4 # Bowel Movements 1 1 Active Medications: Current Medications Acetaminophen (Tylenol 650mg/20.3ml Suspension) 650 mg GT Q4H PRN PRN Reason: Pain (Mild) Stop: 10/18/17 23:11 Last Admin: 08/20/17 22:20 Dose: 650 mg Acetaminophen (Tylenol 650mg/20.3ml Suspension) 650 mg GT Q4H PRN PRN Reason: Fever > 101 Stop: 10/18/17 23:11 Alendronate Sodium (Fosamax) 70 mg PO QSUN@0630 [facility] Stop: 10/24/17 06:29 Ascorbic Acid (Vitamin C) 500 mg PO BID [facility] Stop: 10/19/17 08:59 Last Admin: 08/20/17 16:43 Dose: 500 mg Bisacodyl (Dulcolax 10 Mg Supp) 10 mg RC DAILY PRN PRN Reason: Constipation Stop: 10/18/17 22:36 Ferrous Sulfate (Iron) 220 mg GT DAILY [facility] Stop: 10/19/17 08:59 Last Admin: 08/20/17 08:42 Dose: Not Given Glycopyrrolate (Robinul) 1 mg PO BID [facility] Stop: 10/19/17 08:59 Last Admin: 08/20/17 16:43 Dose: 1 mg Dextrose/Sodium Chloride (D5-0.45ns) 1,000 mls @ 80 mls/hr IV .[id number] [facility] Stop: 10/18/17 22:44 Last Admin: 08/21/17 05:34 Dose: 80 mls/hr Azithromycin 500 mg/ Sodium (Chloride) 250 mls @ 250 mls/hr IV Q24HR [facility] Stop: 10/19/17 10:59 Last Infusion: 08/20/17 16:15 Dose: Infused Magnesium Hydroxide (Milk Of Magnesia) 30 ml GT DAILY PRN PRN Reason: Constipation Stop: 10/18/17 22:36 Metoclopramide HCl (Reglan) 5 mg PO TID [facility] Stop: 08/26/17 13:59 Last Admin: 08/20/17 20:54 Dose: 5 mg Morphine Sulfate (Morphine) 2 mg IVP Q4H PRN PRN Reason: Pain (Severe) Stop: 10/18/17 22:38 Ondansetron HCl (Zofran) 4 mg IV Q8H PRN PRN Reason: Nausea / Vomiting Stop: 10/18/17 22:38 Last Admin: 08/20/17 23:16 Dose: 4 mg Oxcarbazepine (Trileptal) 600 mg GT BID [facility] Stop: 10/19/17 08:59 Last Admin: 08/20/17 16:43 Dose: 600 mg Pantoprazole Sodium (Protonix) 40 mg IVP BID [facility] Stop: 10/19/17 08:59 Last Admin: 08/20/17 16:44 Dose: 40 mg Polyethylene Glycol (Miralax) 17 gm GT QPM [facility] Stop: 10/19/17 16:59 Last Admin: 08/20/17 16:44 Dose: 17 gm Sodium Phosphate (Fleet Enema) 135 ml RC DAILY PRN PRN Reason: Constipation Stop: 10/18/17 22:36 General: Alert Neck: Supple Cardiovascular: Regular rate Abdomen: Soft, Other (non tender, no guard, no rebound) - Procedures Procedures: Procedures Procedure Code Date CHANGE GASTROSTOMY TUBE 02642 12/15/01 REPLACE GASTROSTOMY TUBE 97.02 12/15/01 Assessment/Plan - Assessment Assessment: # Coffee ground emesis # Cerebral palsy # Developmental delay # Gtube dependence Discussed with patient's mother, and she does not want endoscopy unless he has further overt GI bleeding or worsening anemia. Will continue to treat with PPI and antiemetic for now Plan: - PPI bid dosing for 1 month, then daily (will treat any gastric ulcer or esophagitis) - reglan iv tid for nausea for 10 days, then dc and use prn only - continue tube feeds as tolerated. Hold for high residuals
--- NOTE | 2017-08-21 08:08 | GI Progress Note ---
Subjective - Review of Systems Service Date: 08/21/17 Subjective: Report of vomiting 30cc last night, non bloody. Objective - Results Result Diagrams: 08/21/17 05:55 08/21/17 05:55 Recent Labs: Laboratory Last Values WBC 3.3 Th/cmm (4.8-10.8) L D 08/21/17 05:55 RBC 4.88 Mil/cmm (4.30-5.70) 08/21/17 05:55 Hgb 14.5 gm/dL (12-16) 08/21/17 05:55 Hct 42.6 % (41.0-60) D 08/21/17 05:55 MCV 87.4 fl (80-99) 08/21/17 05:55 MCH 29.7 pg (26.0-30.0) 08/21/17 05:55 MCHC Differential 34.0 pg (28.0-36.0) 08/21/17 05:55 RDW 12.5 % (11.5-20.0) 08/21/17 05:55 Plt Count 158 Th/cmm (150-400) 08/21/17 05:55 MPV 10.1 fl 08/21/17 05:55 Neutrophils % HUNTER TRAPPER 08/21/17 05:55 Band Neutrophils % 3 % (0-10) 08/21/17 05:55 Lymphocytes % HUNTER TRAPPER 08/21/17 05:55 Monocytes % HUNTER TRAPPER 08/21/17 05:55 Eosinophils % HUNTER TRAPPER 08/21/17 05:55 Basophils % HUNTER TRAPPER 08/21/17 05:55 Neutrophils (Manual) 54 % (40-80) 08/21/17 05:55 Lymphocytes 31 % (20-50) 08/21/17 05:55 Monocytes 8 % (2-10) 08/21/17 05:55 Eosinophils 4 % (0-5) 08/21/17 05:55 PT 10.3 SECONDS (9.5-11.5) 08/19/17 19:53 INR 0.99 (0.5-1.4) 08/19/17 19:53 Sodium 137 mEq/L (136-145) 08/21/17 05:55 Potassium 3.6 mEq/L (3.5-5.1) 08/21/17 05:55 Chloride 108 mEq/L (98-107) H 08/21/17 05:55 Carbon Dioxide 24.3 mEq/L (21.0-31.0) 08/21/17 05:55 Anion Gap 8.3 (7.0-16.0) 08/21/17 05:55 BUN 11 mg/dL (7-25) 08/21/17 05:55 Creatinine 0.6 mg/dL (0.7-1.3) L 08/21/17 05:55 Est GFR ( Amer) > 60.0 ml/min (>90) 08/21/17 05:55 Est GFR (Non-Af Amer) > 60.0 ml/min 08/21/17 05:55 BUN/Creatinine Ratio 18.3 08/21/17 05:55 Glucose 109 mg/dL 08/21/17 05:55 Calcium 7.6 mg/dL (8.6-10.3) L 08/21/17 05:55 Magnesium 2.3 mg/dL (1.9-2.7) 08/20/17 06:00 Total Bilirubin 0.5 mg/dL (0.3-1.0) 08/19/17 19:53 AST 28 U/L (13-39) 08/19/17 19:53 ALT 47 U/L (7-52) 08/19/17 19:53 Alkaline Phosphatase 108 U/L (34-104) H 08/19/17 19:53 Total Protein 7.2 gm/dL (6.0-8.3) 08/19/17 19:53 Albumin 4.0 gm/dL (4.2-5.5) L 08/19/17 19:53 Globulin 3.2 gm/dL 08/19/17 19:53 Albumin/Globulin Ratio 1.3 (1.0-1.8) 08/19/17 19:53 TSH 0.85 uIU/ml (0.34-5.60) 08/20/17 06:00 - Physical Exam Vitals and I&O: Vital Signs Temp 97.4 F 08/21/17 04:00 Pulse 101 08/21/17 04:00 Resp 19 08/21/17 04:00 BP 104/68 08/21/17 04:00 Pulse Ox 97 08/21/17 04:00 Intake & Output 11/04/2908/21/17 08/21/17 18:59 06:59 18:59 Intake Total 1590 1154.667 Output Total 400 Balance 1590 754.667 Weight (lbs) 55.792 kg 57.153 kg Intake: Intake, IV Amount 1250 914.667 Azithromycin 500 mg In 250 Sodium Chloride 0.9% 250 ml @ 250 mls/hr IV Q24HR [facility] Rx#:[id number] D5-0.45NS 1,000 ml @ 80 1000 914.667 mls/hr IV .[id number] [facility] Rx #:[id number] Tube Feeding 340 240 Output: Urine 400 Stool 0 Other: # Voids 2 4 # Bowel Movements 1 1 Active Medications: Current Medications Acetaminophen (Tylenol 650mg/20.3ml Suspension) 650 mg GT Q4H PRN PRN Reason: Pain (Mild) Stop: 10/18/17 23:11 Last Admin: 08/20/17 22:20 Dose: 650 mg Acetaminophen (Tylenol 650mg/20.3ml Suspension) 650 mg GT Q4H PRN PRN Reason: Fever > 101 Stop: 10/18/17 23:11 Alendronate Sodium (Fosamax) 70 mg PO QSUN@0630 [facility] Stop: 10/24/17 06:29 Ascorbic Acid (Vitamin C) 500 mg PO BID [facility] Stop: 10/19/17 08:59 Last Admin: 08/20/17 16:43 Dose: 500 mg Bisacodyl (Dulcolax 10 Mg Supp) 10 mg RC DAILY PRN PRN Reason: Constipation Stop: 10/18/17 22:36 Ferrous Sulfate (Iron) 220 mg GT DAILY [facility] Stop: 10/19/17 08:59 Last Admin: 08/20/17 08:42 Dose: Not Given Glycopyrrolate (Robinul) 1 mg PO BID [facility] Stop: 10/19/17 08:59 Last Admin: 08/20/17 16:43 Dose: 1 mg Dextrose/Sodium Chloride (D5-0.45ns) 1,000 mls @ 80 mls/hr IV .[id number] [facility] Stop: 10/18/17 22:44 Last Admin: 08/21/17 05:34 Dose: 80 mls/hr Azithromycin 500 mg/ Sodium (Chloride) 250 mls @ 250 mls/hr IV Q24HR [facility] Stop: 10/19/17 10:59 Last Infusion: 08/20/17 16:15 Dose: Infused Magnesium Hydroxide (Milk Of Magnesia) 30 ml GT DAILY PRN PRN Reason: Constipation Stop: 10/18/17 22:36 Metoclopramide HCl (Reglan) 5 mg PO TID [facility] Stop: 08/26/17 13:59 Last Admin: 08/20/17 20:54 Dose: 5 mg Morphine Sulfate (Morphine) 2 mg IVP Q4H PRN PRN Reason: Pain (Severe) Stop: 10/18/17 22:38 Ondansetron HCl (Zofran) 4 mg IV Q8H PRN PRN Reason: Nausea / Vomiting Stop: 10/18/17 22:38 Last Admin: 08/20/17 23:16 Dose: 4 mg Oxcarbazepine (Trileptal) 600 mg GT BID [facility] Stop: 10/19/17 08:59 Last Admin: 08/20/17 16:43 Dose: 600 mg Pantoprazole Sodium (Protonix) 40 mg IVP BID [facility] Stop: 10/19/17 08:59 Last Admin: 08/20/17 16:44 Dose: 40 mg Polyethylene Glycol (Miralax) 17 gm GT QPM [facility] Stop: 10/19/17 16:59 Last Admin: 08/20/17 16:44 Dose: 17 gm Sodium Phosphate (Fleet Enema) 135 ml RC DAILY PRN PRN Reason: Constipation Stop: 10/18/17 22:36 General: Alert Neck: Supple Cardiovascular: Regular rate Abdomen: Soft, Other (non tender, no guard, no rebound) - Procedures Procedures: Procedures Procedure Code Date CHANGE GASTROSTOMY TUBE 37496 12/15/01 REPLACE GASTROSTOMY TUBE 97.02 12/15/01 Assessment/Plan - Assessment Assessment: # Coffee ground emesis # Cerebral palsy # Developmental delay # Gtube dependence Discussed with patient's mother, and she does not want endoscopy unless he has further overt GI bleeding or worsening anemia. Will continue to treat with PPI and antiemetic for now Plan: - PPI bid dosing for 1 month, then daily (will treat any gastric ulcer or esophagitis) - reglan iv tid for nausea for 10 days, then dc and use prn only - continue tube feeds as tolerated. Hold for high residuals
--- NOTE | 2017-08-21 08:08 | GI Progress Note ---
Subjective - Review of Systems Service Date: 08/21/17 Subjective: Report of vomiting 30cc last night, non bloody. Objective - Results Result Diagrams: 08/21/17 05:55 08/21/17 05:55 Recent Labs: Laboratory Last Values WBC 3.3 Th/cmm (4.8-10.8) L D 08/21/17 05:55 RBC 4.88 Mil/cmm (4.30-5.70) 08/21/17 05:55 Hgb 14.5 gm/dL (12-16) 08/21/17 05:55 Hct 42.6 % (41.0-60) D 08/21/17 05:55 MCV 87.4 fl (80-99) 08/21/17 05:55 MCH 29.7 pg (26.0-30.0) 08/21/17 05:55 MCHC Differential 34.0 pg (28.0-36.0) 08/21/17 05:55 RDW 12.5 % (11.5-20.0) 08/21/17 05:55 Plt Count 158 Th/cmm (150-400) 08/21/17 05:55 MPV 10.1 fl 08/21/17 05:55 Neutrophils % INFORMATION SYSTEMS MANAGER 08/21/17 05:55 Band Neutrophils % 3 % (0-10) 08/21/17 05:55 Lymphocytes % INFORMATION SYSTEMS MANAGER 08/21/17 05:55 Monocytes % INFORMATION SYSTEMS MANAGER 08/21/17 05:55 Eosinophils % INFORMATION SYSTEMS MANAGER 08/21/17 05:55 Basophils % INFORMATION SYSTEMS MANAGER 08/21/17 05:55 Neutrophils (Manual) 54 % (40-80) 08/21/17 05:55 Lymphocytes 31 % (20-50) 08/21/17 05:55 Monocytes 8 % (2-10) 08/21/17 05:55 Eosinophils 4 % (0-5) 08/21/17 05:55 PT 10.3 SECONDS (9.5-11.5) 08/19/17 19:53 INR 0.99 (0.5-1.4) 08/19/17 19:53 Sodium 137 mEq/L (136-145) 08/21/17 05:55 Potassium 3.6 mEq/L (3.5-5.1) 08/21/17 05:55 Chloride 108 mEq/L (98-107) H 08/21/17 05:55 Carbon Dioxide 24.3 mEq/L (21.0-31.0) 08/21/17 05:55 Anion Gap 8.3 (7.0-16.0) 08/21/17 05:55 BUN 11 mg/dL (7-25) 08/21/17 05:55 Creatinine 0.6 mg/dL (0.7-1.3) L 08/21/17 05:55 Est GFR ( Amer) > 60.0 ml/min (>90) 08/21/17 05:55 Est GFR (Non-Af Amer) > 60.0 ml/min 08/21/17 05:55 BUN/Creatinine Ratio 18.3 08/21/17 05:55 Glucose 109 mg/dL 08/21/17 05:55 Calcium 7.6 mg/dL (8.6-10.3) L 08/21/17 05:55 Magnesium 2.3 mg/dL (1.9-2.7) 08/20/17 06:00 Total Bilirubin 0.5 mg/dL (0.3-1.0) 08/19/17 19:53 AST 28 U/L (13-39) 08/19/17 19:53 ALT 47 U/L (7-52) 08/19/17 19:53 Alkaline Phosphatase 108 U/L (34-104) H 08/19/17 19:53 Total Protein 7.2 gm/dL (6.0-8.3) 08/19/17 19:53 Albumin 4.0 gm/dL (4.2-5.5) L 08/19/17 19:53 Globulin 3.2 gm/dL 08/19/17 19:53 Albumin/Globulin Ratio 1.3 (1.0-1.8) 08/19/17 19:53 TSH 0.85 uIU/ml (0.34-5.60) 08/20/17 06:00 - Physical Exam Vitals and I&O: Vital Signs Temp 97.4 F 08/21/17 04:00 Pulse 101 08/21/17 04:00 Resp 19 08/21/17 04:00 BP 104/68 08/21/17 04:00 Pulse Ox 97 08/21/17 04:00 Intake & Output 11/04/2908/21/17 08/21/17 18:59 06:59 18:59 Intake Total 1590 1154.667 Output Total 400 Balance 1590 754.667 Weight (lbs) 55.792 kg 57.153 kg Intake: Intake, IV Amount 1250 914.667 Azithromycin 500 mg In 250 Sodium Chloride 0.9% 250 ml @ 250 mls/hr IV Q24HR [facility] Rx#:[id number] D5-0.45NS 1,000 ml @ 80 1000 914.667 mls/hr IV .[id number] [facility] Rx #:[id number] Tube Feeding 340 240 Output: Urine 400 Stool 0 Other: # Voids 2 4 # Bowel Movements 1 1 Active Medications: Current Medications Acetaminophen (Tylenol 650mg/20.3ml Suspension) 650 mg GT Q4H PRN PRN Reason: Pain (Mild) Stop: 10/18/17 23:11 Last Admin: 08/20/17 22:20 Dose: 650 mg Acetaminophen (Tylenol 650mg/20.3ml Suspension) 650 mg GT Q4H PRN PRN Reason: Fever > 101 Stop: 10/18/17 23:11 Alendronate Sodium (Fosamax) 70 mg PO QSUN@0630 [facility] Stop: 10/24/17 06:29 Ascorbic Acid (Vitamin C) 500 mg PO BID [facility] Stop: 10/19/17 08:59 Last Admin: 08/20/17 16:43 Dose: 500 mg Bisacodyl (Dulcolax 10 Mg Supp) 10 mg RC DAILY PRN PRN Reason: Constipation Stop: 10/18/17 22:36 Ferrous Sulfate (Iron) 220 mg GT DAILY [facility] Stop: 10/19/17 08:59 Last Admin: 08/20/17 08:42 Dose: Not Given Glycopyrrolate (Robinul) 1 mg PO BID [facility] Stop: 10/19/17 08:59 Last Admin: 08/20/17 16:43 Dose: 1 mg Dextrose/Sodium Chloride (D5-0.45ns) 1,000 mls @ 80 mls/hr IV .[id number] [facility] Stop: 10/18/17 22:44 Last Admin: 08/21/17 05:34 Dose: 80 mls/hr Azithromycin 500 mg/ Sodium (Chloride) 250 mls @ 250 mls/hr IV Q24HR [facility] Stop: 10/19/17 10:59 Last Infusion: 08/20/17 16:15 Dose: Infused Magnesium Hydroxide (Milk Of Magnesia) 30 ml GT DAILY PRN PRN Reason: Constipation Stop: 10/18/17 22:36 Metoclopramide HCl (Reglan) 5 mg PO TID [facility] Stop: 08/26/17 13:59 Last Admin: 08/20/17 20:54 Dose: 5 mg Morphine Sulfate (Morphine) 2 mg IVP Q4H PRN PRN Reason: Pain (Severe) Stop: 10/18/17 22:38 Ondansetron HCl (Zofran) 4 mg IV Q8H PRN PRN Reason: Nausea / Vomiting Stop: 10/18/17 22:38 Last Admin: 08/20/17 23:16 Dose: 4 mg Oxcarbazepine (Trileptal) 600 mg GT BID [facility] Stop: 10/19/17 08:59 Last Admin: 08/20/17 16:43 Dose: 600 mg Pantoprazole Sodium (Protonix) 40 mg IVP BID [facility] Stop: 10/19/17 08:59 Last Admin: 08/20/17 16:44 Dose: 40 mg Polyethylene Glycol (Miralax) 17 gm GT QPM AYO Stop: 10/19/17 16:59 Last Admin: 08/20/17 16:44 Dose: 17 gm Sodium Phosphate (Fleet Enema) 135 ml RC DAILY PRN PRN Reason: Constipation Stop: 10/18/17 22:36 General: Alert Neck: Supple Cardiovascular: Regular rate Abdomen: Soft, Other (non tender, no guard, no rebound) - Procedures Procedures: Procedures Procedure Code Date CHANGE GASTROSTOMY TUBE 46605 12/15/01 REPLACE GASTROSTOMY TUBE 97.02 12/15/01 Assessment/Plan - Assessment Assessment: # Coffee ground emesis # Cerebral palsy # Developmental delay # Gtube dependence Discussed with patient's mother, and she does not want endoscopy unless he has further overt GI bleeding or worsening anemia. Will continue to treat with PPI and antiemetic for now Plan: - PPI bid dosing for 1 month, then daily (will treat any gastric ulcer or esophagitis) - reglan iv tid for nausea for 10 days, then dc and use prn only - continue tube feeds as tolerated. Hold for high residuals
[2017-08-21] MEDS: Ferrous Sulfate 300 MG/5 ML UDC GT SCH ×2 (09:02)
[2017-08-21] MEDS: Multivitamin w/ Minerals Tab GT SCH ×2 (09:03)
--- NOTE | 2017-08-21 09:41 | Diagnostic Imaging Report ---
Portable chest x-ray HISTORY: Shortness of breath Compared with the prior exam of August 19, 2017, there is a very poor inspiration. The heart appears enlarged. There is suggestion of a small right pleural effusion. IMPRESSION: 1. Cardiomegaly along with evidence of a small right pleural effusion. A degree of congestive heart failure cannot be excluded. Clinical correlation is needed.
[2017-08-21] MEDS: Azithromycin 500 MG in Sodium Chloride 0.9% 250 ML IV SCH (11:21)
--- NOTE | 2017-08-21 12:06 | Internal Medicine Prog Note ---
Internal Medicine Subjective - Subjective Service Date: 08/21/17 Patient seen and examined:: with staff Patient is:: awake, non-verbal Patient Complaints of:: vomitting Internal Medicine Objective - Results Result Diagrams: 08/21/17 05:55 08/21/17 05:55 Recent Labs: Laboratory Last Values WBC 3.3 Th/cmm (4.8-10.8) L D 08/21/17 05:55 RBC 4.88 Mil/cmm (4.30-5.70) 08/21/17 05:55 Hgb 14.5 gm/dL (12-16) 08/21/17 05:55 Hct 42.6 % (41.0-60) D 08/21/17 05:55 MCV 87.4 fl (80-99) 08/21/17 05:55 MCH 29.7 pg (26.0-30.0) 08/21/17 05:55 MCHC Differential 34.0 pg (28.0-36.0) 08/21/17 05:55 RDW 12.5 % (11.5-20.0) 08/21/17 05:55 Plt Count 158 Th/cmm (150-400) 08/21/17 05:55 MPV 10.1 fl 08/21/17 05:55 Neutrophils % RELIABILITY ENGINEER 08/21/17 05:55 Band Neutrophils % 3 % (0-10) 08/21/17 05:55 Lymphocytes % RELIABILITY ENGINEER 08/21/17 05:55 Monocytes % RELIABILITY ENGINEER 08/21/17 05:55 Eosinophils % RELIABILITY ENGINEER 08/21/17 05:55 Basophils % RELIABILITY ENGINEER 08/21/17 05:55 Neutrophils (Manual) 54 % (40-80) 08/21/17 05:55 Lymphocytes 31 % (20-50) 08/21/17 05:55 Monocytes 8 % (2-10) 08/21/17 05:55 Eosinophils 4 % (0-5) 08/21/17 05:55 PT 10.3 SECONDS (9.5-11.5) 08/19/17 19:53 INR 0.99 (0.5-1.4) 08/19/17 19:53 Sodium 137 mEq/L (136-145) 08/21/17 05:55 Potassium 3.6 mEq/L (3.5-5.1) 08/21/17 05:55 Chloride 108 mEq/L (98-107) H 08/21/17 05:55 Carbon Dioxide 24.3 mEq/L (21.0-31.0) 08/21/17 05:55 Anion Gap 8.3 (7.0-16.0) 08/21/17 05:55 BUN 11 mg/dL (7-25) 08/21/17 05:55 Creatinine 0.6 mg/dL (0.7-1.3) L 08/21/17 05:55 Est GFR ( Amer) > 60.0 ml/min (>90) 08/21/17 05:55 Est GFR (Non-Af Amer) > 60.0 ml/min 08/21/17 05:55 BUN/Creatinine Ratio 18.3 08/21/17 05:55 Glucose 109 mg/dL 08/21/17 05:55 Calcium 7.6 mg/dL (8.6-10.3) L 08/21/17 05:55 Magnesium 2.3 mg/dL (1.9-2.7) 08/20/17 06:00 Total Bilirubin 0.5 mg/dL (0.3-1.0) 08/19/17 19:53 AST 28 U/L (13-39) 08/19/17 19:53 ALT 47 U/L (7-52) 08/19/17 19:53 Alkaline Phosphatase 108 U/L (34-104) H 08/19/17 19:53 Total Protein 7.2 gm/dL (6.0-8.3) 08/19/17 19:53 Albumin 4.0 gm/dL (4.2-5.5) L 08/19/17 19:53 Globulin 3.2 gm/dL 08/19/17 19:53 Albumin/Globulin Ratio 1.3 (1.0-1.8) 08/19/17 19:53 TSH 0.85 uIU/ml (0.34-5.60) 08/20/17 06:00 - Physical Exam Vitals and I&O: Vital Signs Temp 98.8 F 08/21/17 08:00 Pulse 89 08/21/17 08:00 Resp 17 08/21/17 08:00 BP 113/79 08/21/17 08:00 Pulse Ox 94 08/21/17 08:00 Intake & Output 08/20/17 08/21/17 08/21/17 18:59 06:59 18:59 Intake Total 1590 1154.667 Output Total 400 Balance 1590 754.667 Weight (lbs) 123 lb 126 lb Intake: Intake, IV Amount 1250 914.667 Azithromycin 500 mg In 250 Sodium Chloride 0.9% 250 ml @ 250 mls/hr IV Q24HR [facility] Rx#:[id number] D5-0.45NS 1,000 ml @ 80 1000 914.667 mls/hr IV .[id number] [facility] Rx #:[id number] Tube Feeding 340 240 Output: Urine 400 Stool 0 Other: # Voids 2 4 # Bowel Movements 1 1 Active Medications: Current Medications Acetaminophen (Tylenol 650mg/20.3ml Suspension) 650 mg GT Q4H PRN PRN Reason: Pain (Mild) Stop: 10/18/17 23:11 Last Admin: 08/20/17 22:20 Dose: 650 mg Acetaminophen (Tylenol 650mg/20.3ml Suspension) 650 mg GT Q4H PRN PRN Reason: Fever > 101 Stop: 10/18/17 23:11 Alendronate Sodium (Fosamax) 70 mg PO QSUN@0630 [facility] Stop: 10/24/17 06:29 Ascorbic Acid (Vitamin C) 500 mg PO BID [facility] Stop: 10/19/17 08:59 Last Admin: 08/21/17 09:01 Dose: 500 mg Bisacodyl (Dulcolax 10 Mg Supp) 10 mg RC DAILY PRN PRN Reason: Constipation Stop: 10/18/17 22:36 Ferrous Sulfate (Iron) 220 mg GT DAILY [facility] Stop: 10/19/17 08:59 Last Admin: 08/21/17 09:02 Dose: 220 mg Glycopyrrolate (Robinul) 1 mg PO BID [facility] Stop: 10/19/17 08:59 Last Admin: 08/21/17 09:03 Dose: 1 mg Dextrose/Sodium Chloride (D5-0.45ns) 1,000 mls @ 80 mls/hr IV .[id number] [facility] Stop: 10/18/17 22:44 Last Admin: 08/21/17 05:34 Dose: 80 mls/hr Azithromycin 500 mg/ Sodium (Chloride) 250 mls @ 250 mls/hr IV Q24HR [facility] Stop: 10/19/17 10:59 Last Admin: 08/21/17 11:21 Dose: 250 mls/hr Magnesium Hydroxide (Milk Of Magnesia) 30 ml GT DAILY PRN PRN Reason: Constipation Stop: 10/18/17 22:36 Metoclopramide HCl (Reglan) 5 mg PO TID [facility] Stop: 08/26/17 13:59 Last Admin: 08/21/17 09:01 Dose: 5 mg Morphine Sulfate (Morphine) 2 mg IVP Q4H PRN PRN Reason: Pain (Severe) Stop: 10/18/17 22:38 Ondansetron HCl (Zofran) 4 mg IV Q8H PRN PRN Reason: Nausea / Vomiting Stop: 10/18/17 22:38 Last Admin: 08/20/17 23:16 Dose: 4 mg Oxcarbazepine (Trileptal) 600 mg GT BID [facility] Stop: 10/19/17 08:59 Last Admin: 08/21/17 09:04 Dose: 600 mg Pantoprazole Sodium (Protonix) 40 mg IVP BID [facility] Stop: 10/19/17 08:59 Last Admin: 08/21/17 09:00 Dose: 40 mg Polyethylene Glycol (Miralax) 17 gm GT QPM [facility] Stop: 10/19/17 16:59 Last Admin: 08/20/17 16:44 Dose: 17 gm Sodium Phosphate (Fleet Enema) 135 ml RC DAILY PRN PRN Reason: Constipation Stop: 10/18/17 22:36 General: weak, alert HEENT: NC/AT, PERRLA Neck: Supple Lungs: CTAB Cardiovascular: Normal S1, Normal S2, without murmur Abdomen: soft, non-tender, non-distended, positive bowel sound Extremities: excoriation - Procedures Procedures: Procedures Procedure Code Date CHANGE GASTROSTOMY TUBE 81601 12/15/01 REPLACE GASTROSTOMY TUBE 97.02 12/15/01 Internal Medicine Assmt/Plan - Assessment Assessment: [facility] ASSOCIATED PNA ACUTE GI BLEED ANEMIA CEREBRAL PALSY SEIZURES OSTEOPOROSIS HIATAL HERNIA GERD - Plan Plan: f/u chest xray in am continue ivf for hydration reglan iv as per gi monitor electrolytes am labs continue current plan of care Nutritional Asmnt/Malnutr-PDOC - Dietary Evaluation Malnutrition Findings (Please click <Entered> for more info): Nutritional Asmnt/Malnutrition Start: 08/20/17 16: 45 Text: Status: Active Freq: Document 08/20/17 16:45 ANTOLIN (Rec: 08/20/17 17:06 [email or web address]) Nutritional Asmnt/Malnutrition Patient General Information Nutritional Screening High Risk Diagnosis Upper GI bleeding Pertinent Medical Hx/Surgical Hx PUD/GERD, seizure, osteoporosis, peptic ulcer, anemia, cerebral palsy, PEG Subjective Information Pt from SNF was admitted for GI bleeding. Per nurse, no episodes of pain, emesis today . Tube started this morning from 10ml/hr, currently running at 20ml/hr during the time of visit. Spoke with RN, pt is tolerating well, 40ml residual, increase to goal rate this afternoon. Current Diet Order/ Nutrition Support Nutren 2.0 40ml/hr x 15hrs daily providing 1200kcal, 50g pro Pertinent Medications Vit C, D5, Miralax Pertinent Labs 08/20: Na, 134L, K 3.7, Cl 107, BUN 15, Cr 0.7, Ca 8.3L, Alb 4.0L 08/19: Cr 0.6 Nutritional Hx/Data Height 5 ft 3 in Height (Calculated Centimeters) 160.0 Current Weight (lbs) 123 lb Weight (Calculated Kilograms) 55.8 Weight (Calculated Grams) 40900.9 [place] Body Weight 124 % [place] Body Weight 100 Body Mass Index (BMI) 21.7 Recent Weight Change No Weight Status Approriate GI Symptoms GI Symptoms None Food Allergies No Skin Integrity/Comment: intact Estimated Nutritional Goals BEE in Kcals: Using Current wt Calories/Kcals/Kg 25-30 Kcals Calculated 4248-7268 Protein: Using Current wt Protein g/k Protein Calculated 60 Fluid: ml 1500-1800ml (1ml/kcal) Nutritional Problem 1. Problem Problem inadequate enteral intake Etiology current nutrition support not meeting 100% nutritional needs Signs/Symptoms: TF providing 80% of estimated nutritional needs Malnutrition Alert Protein-Calorie Malnutrition N/A Is there a minimum of two criteria No selected? Query Text:Check all the applicable criteria. A minimum of two criteria are recommended for diagnosis of either severe or non-severe malnutrition. Intervention/Recommendation Recommendations by RD Increase Calorie Intake Comments 1. Recommend TF Nutren 2.0 40ml/hr x 18hr daily. This provides 1440kcal, 60g pro, meeting 100% of nutritional needs 2. Moniotr TF tolerance, residuals 3. Monitor GI symptoms, wt weekly, labs 4. F/U as high risk in 2-3 days, 08/22-08/23 Expected Outcomes/Goals Expected Outcomes/Goals 1. Pt to meet 100% nutritional needs with tolerance 2. GI symptoms to WNL 3. Wt stability, skin to remain intact, labs to improve
--- NOTE | 2017-08-21 12:06 | Internal Medicine Prog Note ---
Internal Medicine Subjective - Subjective Service Date: 08/21/17 Patient seen and examined:: with staff Patient is:: awake, non-verbal Patient Complaints of:: vomitting Internal Medicine Objective - Results Result Diagrams: 08/21/17 05:55 08/21/17 05:55 Recent Labs: Laboratory Last Values WBC 3.3 Th/cmm (4.8-10.8) L D 08/21/17 05:55 RBC 4.88 Mil/cmm (4.30-5.70) 08/21/17 05:55 Hgb 14.5 gm/dL (12-16) 08/21/17 05:55 Hct 42.6 % (41.0-60) D 08/21/17 05:55 MCV 87.4 fl (80-99) 08/21/17 05:55 MCH 29.7 pg (26.0-30.0) 08/21/17 05:55 MCHC Differential 34.0 pg (28.0-36.0) 08/21/17 05:55 RDW 12.5 % (11.5-20.0) 08/21/17 05:55 Plt Count 158 Th/cmm (150-400) 08/21/17 05:55 MPV 10.1 fl 08/21/17 05:55 Neutrophils % FLOUR INSPECTOR 08/21/17 05:55 Band Neutrophils % 3 % (0-10) 08/21/17 05:55 Lymphocytes % FLOUR INSPECTOR 08/21/17 05:55 Monocytes % FLOUR INSPECTOR 08/21/17 05:55 Eosinophils % FLOUR INSPECTOR 08/21/17 05:55 Basophils % FLOUR INSPECTOR 08/21/17 05:55 Neutrophils (Manual) 54 % (40-80) 08/21/17 05:55 Lymphocytes 31 % (20-50) 08/21/17 05:55 Monocytes 8 % (2-10) 08/21/17 05:55 Eosinophils 4 % (0-5) 08/21/17 05:55 PT 10.3 SECONDS (9.5-11.5) 08/19/17 19:53 INR 0.99 (0.5-1.4) 08/19/17 19:53 Sodium 137 mEq/L (136-145) 08/21/17 05:55 Potassium 3.6 mEq/L (3.5-5.1) 08/21/17 05:55 Chloride 108 mEq/L (98-107) H 08/21/17 05:55 Carbon Dioxide 24.3 mEq/L (21.0-31.0) 08/21/17 05:55 Anion Gap 8.3 (7.0-16.0) 08/21/17 05:55 BUN 11 mg/dL (7-25) 08/21/17 05:55 Creatinine 0.6 mg/dL (0.7-1.3) L 08/21/17 05:55 Est GFR ( Amer) > 60.0 ml/min (>90) 08/21/17 05:55 Est GFR (Non-Af Amer) > 60.0 ml/min 08/21/17 05:55 BUN/Creatinine Ratio 18.3 08/21/17 05:55 Glucose 109 mg/dL 08/21/17 05:55 Calcium 7.6 mg/dL (8.6-10.3) L 08/21/17 05:55 Magnesium 2.3 mg/dL (1.9-2.7) 08/20/17 06:00 Total Bilirubin 0.5 mg/dL (0.3-1.0) 08/19/17 19:53 AST 28 U/L (13-39) 08/19/17 19:53 ALT 47 U/L (7-52) 08/19/17 19:53 Alkaline Phosphatase 108 U/L (34-104) H 08/19/17 19:53 Total Protein 7.2 gm/dL (6.0-8.3) 08/19/17 19:53 Albumin 4.0 gm/dL (4.2-5.5) L 08/19/17 19:53 Globulin 3.2 gm/dL 08/19/17 19:53 Albumin/Globulin Ratio 1.3 (1.0-1.8) 08/19/17 19:53 TSH 0.85 uIU/ml (0.34-5.60) 08/20/17 06:00 - Physical Exam Vitals and I&O: Vital Signs Temp 98.8 F 08/21/17 08:00 Pulse 89 08/21/17 08:00 Resp 17 08/21/17 08:00 BP 113/79 08/21/17 08:00 Pulse Ox 94 08/21/17 08:00 Intake & Output 08/20/17 08/21/17 08/21/17 18:59 06:59 18:59 Intake Total 1590 1154.667 Output Total 400 Balance 1590 754.667 Weight (lbs) 123 lb 126 lb Intake: Intake, IV Amount 1250 914.667 Azithromycin 500 mg In 250 Sodium Chloride 0.9% 250 ml @ 250 mls/hr IV Q24HR [facility] Rx#:[id number] D5-0.45NS 1,000 ml @ 80 1000 914.667 mls/hr IV .[id number] [facility] Rx #:[id number] Tube Feeding 340 240 Output: Urine 400 Stool 0 Other: # Voids 2 4 # Bowel Movements 1 1 Active Medications: Current Medications Acetaminophen (Tylenol 650mg/20.3ml Suspension) 650 mg GT Q4H PRN PRN Reason: Pain (Mild) Stop: 10/18/17 23:11 Last Admin: 08/20/17 22:20 Dose: 650 mg Acetaminophen (Tylenol 650mg/20.3ml Suspension) 650 mg GT Q4H PRN PRN Reason: Fever > 101 Stop: 10/18/17 23:11 Alendronate Sodium (Fosamax) 70 mg PO QSUN@0630 [facility] Stop: 10/24/17 06:29 Ascorbic Acid (Vitamin C) 500 mg PO BID [facility] Stop: 10/19/17 08:59 Last Admin: 08/21/17 09:01 Dose: 500 mg Bisacodyl (Dulcolax 10 Mg Supp) 10 mg RC DAILY PRN PRN Reason: Constipation Stop: 10/18/17 22:36 Ferrous Sulfate (Iron) 220 mg GT DAILY [facility] Stop: 10/19/17 08:59 Last Admin: 08/21/17 09:02 Dose: 220 mg Glycopyrrolate (Robinul) 1 mg PO BID [facility] Stop: 10/19/17 08:59 Last Admin: 08/21/17 09:03 Dose: 1 mg Dextrose/Sodium Chloride (D5-0.45ns) 1,000 mls @ 80 mls/hr IV .[id number] [facility] Stop: 10/18/17 22:44 Last Admin: 08/21/17 05:34 Dose: 80 mls/hr Azithromycin 500 mg/ Sodium (Chloride) 250 mls @ 250 mls/hr IV Q24HR [facility] Stop: 10/19/17 10:59 Last Admin: 08/21/17 11:21 Dose: 250 mls/hr Magnesium Hydroxide (Milk Of Magnesia) 30 ml GT DAILY PRN PRN Reason: Constipation Stop: 10/18/17 22:36 Metoclopramide HCl (Reglan) 5 mg PO TID [facility] Stop: 08/26/17 13:59 Last Admin: 08/21/17 09:01 Dose: 5 mg Morphine Sulfate (Morphine) 2 mg IVP Q4H PRN PRN Reason: Pain (Severe) Stop: 10/18/17 22:38 Ondansetron HCl (Zofran) 4 mg IV Q8H PRN PRN Reason: Nausea / Vomiting Stop: 10/18/17 22:38 Last Admin: 08/20/17 23:16 Dose: 4 mg Oxcarbazepine (Trileptal) 600 mg GT BID [facility] Stop: 10/19/17 08:59 Last Admin: 08/21/17 09:04 Dose: 600 mg Pantoprazole Sodium (Protonix) 40 mg IVP BID [facility] Stop: 10/19/17 08:59 Last Admin: 08/21/17 09:00 Dose: 40 mg Polyethylene Glycol (Miralax) 17 gm GT QPM [facility] Stop: 10/19/17 16:59 Last Admin: 08/20/17 16:44 Dose: 17 gm Sodium Phosphate (Fleet Enema) 135 ml RC DAILY PRN PRN Reason: Constipation Stop: 10/18/17 22:36 General: weak, alert HEENT: NC/AT, PERRLA Neck: Supple Lungs: CTAB Cardiovascular: Normal S1, Normal S2, without murmur Abdomen: soft, non-tender, non-distended, positive bowel sound Extremities: excoriation - Procedures Procedures: Procedures Procedure Code Date CHANGE GASTROSTOMY TUBE 61393 12/15/01 REPLACE GASTROSTOMY TUBE 97.02 12/15/01 Internal Medicine Assmt/Plan - Assessment Assessment: HEALTHCARE [facility]ACILITY ASSOCIATED PNA ACUTE GI BLEED ANEMIA CEREBRAL PALSY SEIZURES OSTEOPOROSIS HIATAL HERNIA GERD - Plan Plan: f/u chest xray in am continue ivf for hydration reglan iv as per gi monitor electrolytes am labs continue current plan of care Nutritional Asmnt/Malnutr-PDOC - Dietary Evaluation Malnutrition Findings (Please click <Entered> for more info): Nutritional Asmnt/Malnutrition Start: 08/20/17 16: 45 Text: Status: Active Freq: Document 08/20/17 16:45 ANTOLIN (Rec: 08/20/17 17:06 [email or web address]) Nutritional Asmnt/Malnutrition Patient General Information Nutritional Screening High Risk Diagnosis Upper GI bleeding Pertinent Medical Hx/Surgical Hx PUD/GERD, seizure, osteoporosis, peptic ulcer, anemia, cerebral palsy, PEG Subjective Information Pt from SNF was admitted for GI bleeding. Per nurse, no episodes of pain, emesis today . Tube started this morning from 10ml/hr, currently running at 20ml/hr during the time of visit. Spoke with RN, pt is tolerating well, 40ml residual, increase to goal rate this afternoon. Current Diet Order/ Nutrition Support Nutren 2.0 40ml/hr x 15hrs daily providing 1200kcal, 50g pro Pertinent Medications Vit C, D5, Miralax Pertinent Labs 08/20: Na, 134L, K 3.7, Cl 107, BUN 15, Cr 0.7, Ca 8.3L, Alb 4.0L 08/19: Cr 0.6 Nutritional Hx/Data Height 5 ft 3 in Height (Calculated Centimeters) 160.0 Current Weight (lbs) 123 lb Weight (Calculated Kilograms) 55.8 Weight (Calculated Grams) 30157.9 [place] Body Weight 124 % [place] Body Weight 100 Body Mass Index (BMI) 21.7 Recent Weight Change No Weight Status Approriate GI Symptoms GI Symptoms None Food Allergies No Skin Integrity/Comment: intact Estimated Nutritional Goals BEE in Kcals: Using Current wt Calories/Kcals/Kg 25-30 Kcals Calculated 5597-4720 Protein: Using Current wt Protein g/k Protein Calculated 60 Fluid: ml 1500-1800ml (1ml/kcal) Nutritional Problem 1. Problem Problem inadequate enteral intake Etiology current nutrition support not meeting 100% nutritional needs Signs/Symptoms: TF providing 80% of estimated nutritional needs Malnutrition Alert Protein-Calorie Malnutrition N/A Is there a minimum of two criteria No selected? Query Text:Check all the applicable criteria. A minimum of two criteria are recommended for diagnosis of either severe or non-severe malnutrition. Intervention/Recommendation Recommendations by RD Increase Calorie Intake Comments 1. Recommend TF Nutren 2.0 40ml/hr x 18hr daily. This provides 1440kcal, 60g pro, meeting 100% of nutritional needs 2. Moniotr TF tolerance, residuals 3. Monitor GI symptoms, wt weekly, labs 4. F/U as high risk in 2-3 days, 08/22-08/23 Expected Outcomes/Goals Expected Outcomes/Goals 1. Pt to meet 100% nutritional needs with tolerance 2. GI symptoms to WNL 3. Wt stability, skin to remain intact, labs to improve
--- NOTE | 2017-08-21 12:06 | Internal Medicine Prog Note ---
Internal Medicine Subjective - Subjective Service Date: 08/21/17 Patient seen and examined:: with staff Patient is:: awake, non-verbal Patient Complaints of:: vomitting Internal Medicine Objective - Results Result Diagrams: 08/21/17 05:55 08/21/17 05:55 Recent Labs: Laboratory Last Values WBC 3.3 Th/cmm (4.8-10.8) L D 08/21/17 05:55 RBC 4.88 Mil/cmm (4.30-5.70) 08/21/17 05:55 Hgb 14.5 gm/dL (12-16) 08/21/17 05:55 Hct 42.6 % (41.0-60) D 08/21/17 05:55 MCV 87.4 fl (80-99) 08/21/17 05:55 MCH 29.7 pg (26.0-30.0) 08/21/17 05:55 MCHC Differential 34.0 pg (28.0-36.0) 08/21/17 05:55 RDW 12.5 % (11.5-20.0) 08/21/17 05:55 Plt Count 158 Th/cmm (150-400) 08/21/17 05:55 MPV 10.1 fl 08/21/17 05:55 Neutrophils % SYSTEMS TEST ENGINEER 08/21/17 05:55 Band Neutrophils % 3 % (0-10) 08/21/17 05:55 Lymphocytes % SYSTEMS TEST ENGINEER 08/21/17 05:55 Monocytes % SYSTEMS TEST ENGINEER 08/21/17 05:55 Eosinophils % SYSTEMS TEST ENGINEER 08/21/17 05:55 Basophils % SYSTEMS TEST ENGINEER 08/21/17 05:55 Neutrophils (Manual) 54 % (40-80) 08/21/17 05:55 Lymphocytes 31 % (20-50) 08/21/17 05:55 Monocytes 8 % (2-10) 08/21/17 05:55 Eosinophils 4 % (0-5) 08/21/17 05:55 PT 10.3 SECONDS (9.5-11.5) 08/19/17 19:53 INR 0.99 (0.5-1.4) 08/19/17 19:53 Sodium 137 mEq/L (136-145) 08/21/17 05:55 Potassium 3.6 mEq/L (3.5-5.1) 08/21/17 05:55 Chloride 108 mEq/L (98-107) H 08/21/17 05:55 Carbon Dioxide 24.3 mEq/L (21.0-31.0) 08/21/17 05:55 Anion Gap 8.3 (7.0-16.0) 08/21/17 05:55 BUN 11 mg/dL (7-25) 08/21/17 05:55 Creatinine 0.6 mg/dL (0.7-1.3) L 08/21/17 05:55 Est GFR ( Amer) > 60.0 ml/min (>90) 08/21/17 05:55 Est GFR (Non-Af Amer) > 60.0 ml/min 08/21/17 05:55 BUN/Creatinine Ratio 18.3 08/21/17 05:55 Glucose 109 mg/dL 08/21/17 05:55 Calcium 7.6 mg/dL (8.6-10.3) L 08/21/17 05:55 Magnesium 2.3 mg/dL (1.9-2.7) 08/20/17 06:00 Total Bilirubin 0.5 mg/dL (0.3-1.0) 08/19/17 19:53 AST 28 U/L (13-39) 08/19/17 19:53 ALT 47 U/L (7-52) 08/19/17 19:53 Alkaline Phosphatase 108 U/L (34-104) H 08/19/17 19:53 Total Protein 7.2 gm/dL (6.0-8.3) 08/19/17 19:53 Albumin 4.0 gm/dL (4.2-5.5) L 08/19/17 19:53 Globulin 3.2 gm/dL 08/19/17 19:53 Albumin/Globulin Ratio 1.3 (1.0-1.8) 08/19/17 19:53 TSH 0.85 uIU/ml (0.34-5.60) 08/20/17 06:00 - Physical Exam Vitals and I&O: Vital Signs Temp 98.8 F 08/21/17 08:00 Pulse 89 08/21/17 08:00 Resp 17 08/21/17 08:00 BP 113/79 08/21/17 08:00 Pulse Ox 94 08/21/17 08:00 Intake & Output 08/20/17 08/21/17 08/21/17 18:59 06:59 18:59 Intake Total 1590 1154.667 Output Total 400 Balance 1590 754.667 Weight (lbs) 123 lb 126 lb Intake: Intake, IV Amount 1250 914.667 Azithromycin 500 mg In 250 Sodium Chloride 0.9% 250 ml @ 250 mls/hr IV Q24HR [facility] Rx#:[id number] D5-0.45NS 1,000 ml @ 80 1000 914.667 mls/hr IV .[id number] [facility] Rx #:[id number] Tube Feeding 340 240 Output: Urine 400 Stool 0 Other: # Voids 2 4 # Bowel Movements 1 1 Active Medications: Current Medications Acetaminophen (Tylenol 650mg/20.3ml Suspension) 650 mg GT Q4H PRN PRN Reason: Pain (Mild) Stop: 10/18/17 23:11 Last Admin: 08/20/17 22:20 Dose: 650 mg Acetaminophen (Tylenol 650mg/20.3ml Suspension) 650 mg GT Q4H PRN PRN Reason: Fever > 101 Stop: 10/18/17 23:11 Alendronate Sodium (Fosamax) 70 mg PO QSUN@0630 [facility] Stop: 10/24/17 06:29 Ascorbic Acid (Vitamin C) 500 mg PO BID [facility] Stop: 10/19/17 08:59 Last Admin: 08/21/17 09:01 Dose: 500 mg Bisacodyl (Dulcolax 10 Mg Supp) 10 mg RC DAILY PRN PRN Reason: Constipation Stop: 10/18/17 22:36 Ferrous Sulfate (Iron) 220 mg GT DAILY [facility] Stop: 10/19/17 08:59 Last Admin: 08/21/17 09:02 Dose: 220 mg Glycopyrrolate (Robinul) 1 mg PO BID [facility] Stop: 10/19/17 08:59 Last Admin: 08/21/17 09:03 Dose: 1 mg Dextrose/Sodium Chloride (D5-0.45ns) 1,000 mls @ 80 mls/hr IV .[id number] [facility] Stop: 10/18/17 22:44 Last Admin: 08/21/17 05:34 Dose: 80 mls/hr Azithromycin 500 mg/ Sodium (Chloride) 250 mls @ 250 mls/hr IV Q24HR [facility] Stop: 10/19/17 10:59 Last Admin: 08/21/17 11:21 Dose: 250 mls/hr Magnesium Hydroxide (Milk Of Magnesia) 30 ml GT DAILY PRN PRN Reason: Constipation Stop: 10/18/17 22:36 Metoclopramide HCl (Reglan) 5 mg PO TID [facility] Stop: 08/26/17 13:59 Last Admin: 08/21/17 09:01 Dose: 5 mg Morphine Sulfate (Morphine) 2 mg IVP Q4H PRN PRN Reason: Pain (Severe) Stop: 10/18/17 22:38 Ondansetron HCl (Zofran) 4 mg IV Q8H PRN PRN Reason: Nausea / Vomiting Stop: 10/18/17 22:38 Last Admin: 08/20/17 23:16 Dose: 4 mg Oxcarbazepine (Trileptal) 600 mg GT BID [facility] Stop: 10/19/17 08:59 Last Admin: 08/21/17 09:04 Dose: 600 mg Pantoprazole Sodium (Protonix) 40 mg IVP BID [facility] Stop: 10/19/17 08:59 Last Admin: 08/21/17 09:00 Dose: 40 mg Polyethylene Glycol (Miralax) 17 gm GT QPM [facility] Stop: 10/19/17 16:59 Last Admin: 08/20/17 16:44 Dose: 17 gm Sodium Phosphate (Fleet Enema) 135 ml RC DAILY PRN PRN Reason: Constipation Stop: 10/18/17 22:36 General: weak, alert HEENT: NC/AT, PERRLA Neck: Supple Lungs: CTAB Cardiovascular: Normal S1, Normal S2, without murmur Abdomen: soft, non-tender, non-distended, positive bowel sound Extremities: excoriation - Procedures Procedures: Procedures Procedure Code Date CHANGE GASTROSTOMY TUBE 51514 12/15/01 REPLACE GASTROSTOMY TUBE 97.02 12/15/01 Internal Medicine Assmt/Plan - Assessment Assessment: [facility] ACUTE GI BLEED ANEMIA CEREBRAL PALSY SEIZURES OSTEOPOROSIS HIATAL HERNIA GERD - Plan Plan: f/u chest xray in am continue ivf for hydration reglan iv as per gi monitor electrolytes am labs continue current plan of care Nutritional Asmnt/Malnutr-PDOC - Dietary Evaluation Malnutrition Findings (Please click <Entered> for more info): Nutritional Asmnt/Malnutrition Start: 08/20/17 16: 45 Text: Status: Active Freq: Document 08/20/17 16:45 ANTOLIN (Rec: 08/20/17 17:06 [email or web address]) Nutritional Asmnt/Malnutrition Patient General Information Nutritional Screening High Risk Diagnosis Upper GI bleeding Pertinent Medical Hx/Surgical Hx PUD/GERD, seizure, osteoporosis, peptic ulcer, anemia, cerebral palsy, PEG Subjective Information Pt from SNF was admitted for GI bleeding. Per nurse, no episodes of pain, emesis today . Tube started this morning from 10ml/hr, currently running at 20ml/hr during the time of visit. Spoke with RN, pt is tolerating well, 40ml residual, increase to goal rate this afternoon. Current Diet Order/ Nutrition Support Nutren 2.0 40ml/hr x 15hrs daily providing 1200kcal, 50g pro Pertinent Medications Vit C, D5, Miralax Pertinent Labs 08/20: Na, 134L, K 3.7, Cl 107, BUN 15, Cr 0.7, Ca 8.3L, Alb 4.0L 08/19: Cr 0.6 Nutritional Hx/Data Height 5 ft 3 in Height (Calculated Centimeters) 160.0 Current Weight (lbs) 123 lb Weight (Calculated Kilograms) 55.8 Weight (Calculated Grams) 22871.9 [place] Body Weight 124 % [place]on Body Weight 100 Body Mass Index (BMI) 21.7 Recent Weight Change No Weight Status Approriate GI Symptoms GI Symptoms None Food Allergies No Skin Integrity/Comment: intact Estimated Nutritional Goals BEE in Kcals: Using Current wt Calories/Kcals/Kg 25-30 Kcals Calculated 1023-1193 Protein: Using Current wt Protein g/k Protein Calculated 60 Fluid: ml 1500-1800ml (1ml/kcal) Nutritional Problem 1. Problem Problem inadequate enteral intake Etiology current nutrition support not meeting 100% nutritional needs Signs/Symptoms: TF providing 80% of estimated nutritional needs Malnutrition Alert Protein-Calorie Malnutrition N/A Is there a minimum of two criteria No selected? Query Text:Check all the applicable criteria. A minimum of two criteria are recommended for diagnosis of either severe or non-severe malnutrition. Intervention/Recommendation Recommendations by RD Increase Calorie Intake Comments 1. Recommend TF Nutren 2.0 40ml/hr x 18hr daily. This provides 1440kcal, 60g pro, meeting 100% of nutritional needs 2. Moniotr TF tolerance, residuals 3. Monitor GI symptoms, wt weekly, labs 4. F/U as high risk in 2-3 days, 08/22-08/23 Expected Outcomes/Goals Expected Outcomes/Goals 1. Pt to meet 100% nutritional needs with tolerance 2. GI symptoms to WNL 3. Wt stability, skin to remain intact, labs to improve
[2017-08-22 06:11] LABS: % BASOPHILS 1.3 % (0.0-2.0); % EOSINOPHILS 3.5 % (0.0-5.0); % LYMPHOCYTES 24.4 % (20.0-50.0); % MONOCYTES 13.5 % (2.0-10.0); % NEUTROPHILS 57.3 % (40.0-80.0); BASOPHILE ABSOLUTE 0.1 Th/cumm (0-0.2); EOSINOPHILE ABSOLUTE 0.2 Th/cmm (0.1-0.4); HEMATOCRIT 41.9 % (41.0-60); HEMOGLOBIN 14.4 gm/dL (12-16); LYMPHOCYTE ABSOLUTE 1.2 Th/cmm (1.5-3.0); MEAN CELL VOLUME 87.8 fl (80-99); MEAN CORPUSCULAR HEMOGLOBIN 30.2 pg (26.0-30.0); MEAN CORPUSCULAR HGB CONC 34.3 pg (28.0-36.0); MEAN PLATELET VOLUME 10.8 fl; MONOCYTE ABSOLUTE 0.6 Th/cmm (0.3-1.0); NEUTROPHILE ABSOLUTE 2.7 Th/cmm (1.8-8.0); PLATELET COUNT 149 Th/cmm (150-400); RED BLOOD COUNT 4.77 Mil/cmm (4.30-5.70); RED CELL DISTRIBUTION WIDTH 12.2 % (11.5-20.0)
[2017-08-22 06:12] LABS: WHITE BLOOD COUNT 4.8 Th/cmm (4.8-10.8)
[2017-08-22 06:29] LABS: ANION GAP 7.9 (7.0-16.0); BUN - UREA NITROGEN 8 mg/dL (7-25); CALCIUM SERUM 8.1 mg/dL (8.6-10.3); CARBON DIOXIDE 26.1 mEq/L (21.0-31.0); CHLORIDE 112 mEq/L (98-107); CREATININE - SERUM 0.6 mg/dL (0.7-1.3); GFR AFRICAN-AMERICAN > 60.0 ml/min (>90); GFR NON AFRICAN-AMERICAN > 60.0 ml/min; GLUCOSE 101 mg/dL (70-105); SODIUM SERUM 142 mEq/L (136-145)
--- NOTE | 2017-08-22 08:19 | Diagnostic Imaging Report ---
CHEST X-RAY: AP view INDICATION: Pneumonia COMPARISON: Chest x-ray 08/21/2017 FINDINGS: Exam is limited due to body habitus and positioning. Small right effusion is seen with right lower lung zone infiltrates. Suboptimal lung bones are noted. Left basal atelectasis is noted. Heart size cannot be well assessed on this exam. IMPRESSION: Small right effusion. Right lower lung zone infiltrates are also noted. Procedure low lung volumes limiting the examination.
[2017-08-22] MEDS: Multivitamin w/ Minerals Tab GT SCH ×2 (08:49)
[2017-08-22] MEDS: Ferrous Sulfate 300 MG/5 ML UDC GT SCH ×2 (08:49)
--- NOTE | 2017-08-22 09:55 | GI Progress Note ---
Subjective - Review of Systems Subjective: No new events. Objective - Results Result Diagrams: 08/22/17 05:35 08/22/17 05:35 Recent Labs: Laboratory Last Values WBC 4.8 Th/cmm (4.8-10.8) D 08/22/17 05:35 RBC 4.77 Mil/cmm (4.30-5.70) 08/22/17 05:35 Hgb 14.4 gm/dL (12-16) 08/22/17 05:35 Hct 41.9 % (41.0-60) 08/22/17 05:35 MCV 87.8 fl (80-99) 08/22/17 05:35 MCH 30.2 pg (26.0-30.0) H 08/22/17 05:35 MCHC Differential 34.3 pg (28.0-36.0) 08/22/17 05:35 RDW 12.2 % (11.5-20.0) 08/22/17 05:35 Plt Count 149 Th/cmm (150-400) L 08/22/17 05:35 MPV 10.8 fl 08/22/17 05:35 Neutrophils % 57.3 % (40.0-80.0) 08/22/17 05:35 Band Neutrophils % 3 % (0-10) 08/21/17 05:55 Lymphocytes % 24.4 % (20.0-50.0) 08/22/17 05:35 Monocytes % 13.5 % (2.0-10.0) H 08/22/17 05:35 Eosinophils % 3.5 % (0.0-5.0) 08/22/17 05:35 Basophils % 1.3 % (0.0-2.0) 08/22/17 05:35 Neutrophils (Manual) 54 % (40-80) 08/21/17 05:55 Lymphocytes 31 % (20-50) 08/21/17 05:55 Monocytes 8 % (2-10) 08/21/17 05:55 Eosinophils 4 % (0-5) 08/21/17 05:55 PT 10.3 SECONDS (9.5-11.5) 08/19/17 19:53 INR 0.99 (0.5-1.4) 08/19/17 19:53 Sodium 142 mEq/L (136-145) 08/22/17 05:35 Potassium 4.0 mEq/L (3.5-5.1) 08/22/17 05:35 Chloride 112 mEq/L (98-107) H 08/22/17 05:35 Carbon Dioxide 26.1 mEq/L (21.0-31.0) 08/22/17 05:35 Anion Gap 7.9 (7.0-16.0) 08/22/17 05:35 BUN 8 mg/dL (7-25) 08/22/17 05:35 Creatinine 0.6 mg/dL (0.7-1.3) L 08/22/17 05:35 Est GFR ( Amer) > 60.0 ml/min (>90) 08/22/17 05:35 Est GFR (Non-Af Amer) > 60.0 ml/min 08/22/17 05:35 BUN/Creatinine Ratio 13.3 08/22/17 05:35 Glucose 101 mg/dL (70-105) 08/22/17 05:35 Calcium 8.1 mg/dL (8.6-10.3) L 08/22/17 05:35 Magnesium 2.3 mg/dL (1.9-2.7) 08/20/17 06:00 Total Bilirubin 0.5 mg/dL (0.3-1.0) 08/19/17 19:53 AST 28 U/L (13-39) 08/19/17 19:53 ALT 47 U/L (7-52) 08/19/17 19:53 Alkaline Phosphatase 108 U/L (34-104) H 08/19/17 19:53 Total Protein 7.2 gm/dL (6.0-8.3) 08/19/17 19:53 Albumin 4.0 gm/dL (4.2-5.5) L 08/19/17 19:53 Globulin 3.2 gm/dL 08/19/17 19:53 Albumin/Globulin Ratio 1.3 (1.0-1.8) 08/19/17 19:53 TSH 0.85 uIU/ml (0.34-5.60) 08/20/17 06:00 - Physical Exam Vitals and I&O: Vital Signs Temp 98.8 F 08/22/17 07:50 Pulse 88 08/22/17 07:50 Resp 18 08/22/17 07:50 BP 118/66 08/22/17 07:50 Pulse Ox 99 08/22/17 07:50 Intake & Output 08/21/17 08/22/17 08/22/17 18:59 06:59 18:59 Intake Total 610 40 Output Total 2 Balance 610 38 Weight (lbs) 57.153 kg 57.805 kg Intake: Intake, IV Amount 250 Azithromycin 500 mg In 250 Sodium Chloride 0.9% 250 ml @ 250 mls/hr IV Q24HR [facility] Rx#:[id number] Tube Feeding 360 40 Output: Urine 2 Other: # Voids 5 2 # Bowel Movements 2 1 Active Medications: Current Medications Acetaminophen (Tylenol 650mg/20.3ml Suspension) 650 mg GT Q4H PRN PRN Reason: Pain (Mild) Stop: 10/18/17 23:11 Last Admin: 08/20/17 22:20 Dose: 650 mg Acetaminophen (Tylenol 650mg/20.3ml Suspension) 650 mg GT Q4H PRN PRN Reason: Fever > 101 Stop: 10/18/17 23:11 Alendronate Sodium (Fosamax) 70 mg PO QSUN@0630 [facility] Stop: 10/24/17 06:29 Ascorbic Acid (Vitamin C) 500 mg PO BID [facility] Stop: 10/19/17 08:59 Last Admin: 08/22/17 08:46 Dose: 500 mg Bisacodyl (Dulcolax 10 Mg Supp) 10 mg RC DAILY PRN PRN Reason: Constipation Stop: 10/18/17 22:36 Ferrous Sulfate (Iron) 220 mg GT DAILY [facility] Stop: 10/19/17 08:59 Last Admin: 08/22/17 08:49 Dose: 220 mg Glycopyrrolate (Robinul) 1 mg PO BID [facility] Stop: 10/19/17 08:59 Last Admin: 08/22/17 08:47 Dose: 1 mg Azithromycin 500 mg/ Sodium (Chloride) 250 mls @ 250 mls/hr IV Q24HR [facility] Stop: 10/19/17 10:59 Last Infusion: 08/21/17 18:09 Dose: Infused Dextrose/Sodium Chloride (D5-0.45ns) 1,000 mls @ 70 mls/hr IV .[id number] [facility] Stop: 10/18/17 22:44 Last Admin: 08/21/17 21:50 Dose: 70 mls/hr Magnesium Hydroxide (Milk Of Magnesia) 30 ml GT DAILY PRN PRN Reason: Constipation Stop: 10/18/17 22:36 Metoclopramide HCl (Reglan) 5 mg PO TID [facility] Stop: 08/26/17 13:59 Last Admin: 08/22/17 08:48 Dose: 5 mg Morphine Sulfate (Morphine) 2 mg IVP Q4H PRN PRN Reason: Pain (Severe) Stop: 10/18/17 22:38 Last Admin: 08/21/17 14:54 Dose: 2 mg Ondansetron HCl (Zofran) 4 mg IV Q8H PRN PRN Reason: Nausea / Vomiting Stop: 10/18/17 22:38 Last Admin: 08/21/17 14:53 Dose: 4 mg Oxcarbazepine (Trileptal) 600 mg GT BID [facility] Stop: 10/19/17 08:59 Last Admin: 08/22/17 08:48 Dose: 600 mg Pantoprazole Sodium (Protonix) 40 mg IVP BID [facility] Stop: 10/19/17 08:59 Last Admin: 08/22/17 08:49 Dose: 40 mg Polyethylene Glycol (Miralax) 17 gm GT QPM [facility] Stop: 10/19/17 16:59 Last Admin: 08/20/17 16:44 Dose: 17 gm Sodium Phosphate (Fleet Enema) 135 ml RC DAILY PRN PRN Reason: Constipation Stop: 10/18/17 22:36 General: Alert Neck: Supple Cardiovascular: Regular rate Abdomen: Soft, Other (non tender, no guard, no rebound) - Procedures Procedures: Procedures Procedure Code Date CHANGE GASTROSTOMY TUBE 83725 12/15/01 REPLACE GASTROSTOMY TUBE 97.02 12/15/01 Assessment/Plan - Assessment Assessment: # Coffee ground emesis # Cerebral palsy # Developmental delay # Gtube dependence Discussed with patient's mother, and she does not want endoscopy unless he has further overt GI bleeding or worsening anemia. Will continue to treat with PPI and antiemetic for now Plan: - PPI bid dosing for 1 month, then daily (will treat any gastric ulcer or esophagitis) - reglan iv tid for nausea for 10 days, then dc and use prn only - continue tube feeds as tolerated. Hold for high residuals GI to see as needed, please call with questions
--- NOTE | 2017-08-22 09:55 | GI Progress Note ---
Subjective - Review of Systems Subjective: No new events. Objective - Results Result Diagrams: 08/22/17 05:35 08/22/17 05:35 Recent Labs: Laboratory Last Values WBC 4.8 Th/cmm (4.8-10.8) D 08/22/17 05:35 RBC 4.77 Mil/cmm (4.30-5.70) 08/22/17 05:35 Hgb 14.4 gm/dL (12-16) 08/22/17 05:35 Hct 41.9 % (41.0-60) 08/22/17 05:35 MCV 87.8 fl (80-99) 08/22/17 05:35 MCH 30.2 pg (26.0-30.0) H 08/22/17 05:35 MCHC Differential 34.3 pg (28.0-36.0) 08/22/17 05:35 RDW 12.2 % (11.5-20.0) 08/22/17 05:35 Plt Count 149 Th/cmm (150-400) L 08/22/17 05:35 MPV 10.8 fl 08/22/17 05:35 Neutrophils % 57.3 % (40.0-80.0) 08/22/17 05:35 Band Neutrophils % 3 % (0-10) 08/21/17 05:55 Lymphocytes % 24.4 % (20.0-50.0) 08/22/17 05:35 Monocytes % 13.5 % (2.0-10.0) H 08/22/17 05:35 Eosinophils % 3.5 % (0.0-5.0) 08/22/17 05:35 Basophils % 1.3 % (0.0-2.0) 08/22/17 05:35 Neutrophils (Manual) 54 % (40-80) 08/21/17 05:55 Lymphocytes 31 % (20-50) 08/21/17 05:55 Monocytes 8 % (2-10) 08/21/17 05:55 Eosinophils 4 % (0-5) 08/21/17 05:55 PT 10.3 SECONDS (9.5-11.5) 08/19/17 19:53 INR 0.99 (0.5-1.4) 08/19/17 19:53 Sodium 142 mEq/L (136-145) 08/22/17 05:35 Potassium 4.0 mEq/L (3.5-5.1) 08/22/17 05:35 Chloride 112 mEq/L (98-107) H 08/22/17 05:35 Carbon Dioxide 26.1 mEq/L (21.0-31.0) 08/22/17 05:35 Anion Gap 7.9 (7.0-16.0) 08/22/17 05:35 BUN 8 mg/dL (7-25) 08/22/17 05:35 Creatinine 0.6 mg/dL (0.7-1.3) L 08/22/17 05:35 Est GFR ( Amer) > 60.0 ml/min (>90) 08/22/17 05:35 Est GFR (Non-Af Amer) > 60.0 ml/min 08/22/17 05:35 BUN/Creatinine Ratio 13.3 08/22/17 05:35 Glucose 101 mg/dL (70-105) 08/22/17 05:35 Calcium 8.1 mg/dL (8.6-10.3) L 08/22/17 05:35 Magnesium 2.3 mg/dL (1.9-2.7) 08/20/17 06:00 Total Bilirubin 0.5 mg/dL (0.3-1.0) 08/19/17 19:53 AST 28 U/L (13-39) 08/19/17 19:53 ALT 47 U/L (7-52) 08/19/17 19:53 Alkaline Phosphatase 108 U/L (34-104) H 08/19/17 19:53 Total Protein 7.2 gm/dL (6.0-8.3) 08/19/17 19:53 Albumin 4.0 gm/dL (4.2-5.5) L 08/19/17 19:53 Globulin 3.2 gm/dL 08/19/17 19:53 Albumin/Globulin Ratio 1.3 (1.0-1.8) 08/19/17 19:53 TSH 0.85 uIU/ml (0.34-5.60) 08/20/17 06:00 - Physical Exam Vitals and I&O: Vital Signs Temp 98.8 F 08/22/17 07:50 Pulse 88 08/22/17 07:50 Resp 18 08/22/17 07:50 BP 118/66 08/22/17 07:50 Pulse Ox 99 08/22/17 07:50 Intake & Output 08/21/17 08/22/17 08/22/17 18:59 06:59 18:59 Intake Total 610 40 Output Total 2 Balance 610 38 Weight (lbs) 57.153 kg 57.805 kg Intake: Intake, IV Amount 250 Azithromycin 500 mg In 250 Sodium Chloride 0.9% 250 ml @ 250 mls/hr IV Q24HR [facility] Rx#:[id number] Tube Feeding 360 40 Output: Urine 2 Other: # Voids 5 2 # Bowel Movements 2 1 Active Medications: Current Medications Acetaminophen (Tylenol 650mg/20.3ml Suspension) 650 mg GT Q4H PRN PRN Reason: Pain (Mild) Stop: 10/18/17 23:11 Last Admin: 08/20/17 22:20 Dose: 650 mg Acetaminophen (Tylenol 650mg/20.3ml Suspension) 650 mg GT Q4H PRN PRN Reason: Fever > 101 Stop: 10/18/17 23:11 Alendronate Sodium (Fosamax) 70 mg PO QSUN@0630 [facility] Stop: 10/24/17 06:29 Ascorbic Acid (Vitamin C) 500 mg PO BID [facility] Stop: 10/19/17 08:59 Last Admin: 08/22/17 08:46 Dose: 500 mg Bisacodyl (Dulcolax 10 Mg Supp) 10 mg RC DAILY PRN PRN Reason: Constipation Stop: 10/18/17 22:36 Ferrous Sulfate (Iron) 220 mg GT DAILY [facility] Stop: 10/19/17 08:59 Last Admin: 08/22/17 08:49 Dose: 220 mg Glycopyrrolate (Robinul) 1 mg PO BID [facility] Stop: 10/19/17 08:59 Last Admin: 08/22/17 08:47 Dose: 1 mg Azithromycin 500 mg/ Sodium (Chloride) 250 mls @ 250 mls/hr IV Q24HR [facility] Stop: 10/19/17 10:59 Last Infusion: 08/21/17 18:09 Dose: Infused Dextrose/Sodium Chloride (D5-0.45ns) 1,000 mls @ 70 mls/hr IV .[id number] [facility] Stop: 10/18/17 22:44 Last Admin: 08/21/17 21:50 Dose: 70 mls/hr Magnesium Hydroxide (Milk Of Magnesia) 30 ml GT DAILY PRN PRN Reason: Constipation Stop: 10/18/17 22:36 Metoclopramide HCl (Reglan) 5 mg PO TID [facility] Stop: 08/26/17 13:59 Last Admin: 08/22/17 08:48 Dose: 5 mg Morphine Sulfate (Morphine) 2 mg IVP Q4H PRN PRN Reason: Pain (Severe) Stop: 10/18/17 22:38 Last Admin: 08/21/17 14:54 Dose: 2 mg Ondansetron HCl (Zofran) 4 mg IV Q8H PRN PRN Reason: Nausea / Vomiting Stop: 10/18/17 22:38 Last Admin: 08/21/17 14:53 Dose: 4 mg Oxcarbazepine (Trileptal) 600 mg GT BID [facility] Stop: 10/19/17 08:59 Last Admin: 08/22/17 08:48 Dose: 600 mg Pantoprazole Sodium (Protonix) 40 mg IVP BID [facility] Stop: 10/19/17 08:59 Last Admin: 08/22/17 08:49 Dose: 40 mg Polyethylene Glycol (Miralax) 17 gm GT QPM [facility] Stop: 10/19/17 16:59 Last Admin: 08/20/17 16:44 Dose: 17 gm Sodium Phosphate (Fleet Enema) 135 ml RC DAILY PRN PRN Reason: Constipation Stop: 10/18/17 22:36 General: Alert Neck: Supple Cardiovascular: Regular rate Abdomen: Soft, Other (non tender, no guard, no rebound) - Procedures Procedures: Procedures Procedure Code Date CHANGE GASTROSTOMY TUBE 13677 12/15/01 REPLACE GASTROSTOMY TUBE 97.02 12/15/01 Assessment/Plan - Assessment Assessment: # Coffee ground emesis # Cerebral palsy # Developmental delay # Gtube dependence Discussed with patient's mother, and she does not want endoscopy unless he has further overt GI bleeding or worsening anemia. Will continue to treat with PPI and antiemetic for now Plan: - PPI bid dosing for 1 month, then daily (will treat any gastric ulcer or esophagitis) - reglan iv tid for nausea for 10 days, then dc and use prn only - continue tube feeds as tolerated. Hold for high residuals GI to see as needed, please call with questions
--- NOTE | 2017-08-22 09:55 | GI Progress Note ---
Subjective - Review of Systems Subjective: No new events. Objective - Results Result Diagrams: 08/22/17 05:35 08/22/17 05:35 Recent Labs: Laboratory Last Values WBC 4.8 Th/cmm (4.8-10.8) D 08/22/17 05:35 RBC 4.77 Mil/cmm (4.30-5.70) 08/22/17 05:35 Hgb 14.4 gm/dL (12-16) 08/22/17 05:35 Hct 41.9 % (41.0-60) 08/22/17 05:35 MCV 87.8 fl (80-99) 08/22/17 05:35 MCH 30.2 pg (26.0-30.0) H 08/22/17 05:35 MCHC Differential 34.3 pg (28.0-36.0) 08/22/17 05:35 RDW 12.2 % (11.5-20.0) 08/22/17 05:35 Plt Count 149 Th/cmm (150-400) L 08/22/17 05:35 MPV 10.8 fl 08/22/17 05:35 Neutrophils % 57.3 % (40.0-80.0) 08/22/17 05:35 Band Neutrophils % 3 % (0-10) 08/21/17 05:55 Lymphocytes % 24.4 % (20.0-50.0) 08/22/17 05:35 Monocytes % 13.5 % (2.0-10.0) H 08/22/17 05:35 Eosinophils % 3.5 % (0.0-5.0) 08/22/17 05:35 Basophils % 1.3 % (0.0-2.0) 08/22/17 05:35 Neutrophils (Manual) 54 % (40-80) 08/21/17 05:55 Lymphocytes 31 % (20-50) 08/21/17 05:55 Monocytes 8 % (2-10) 08/21/17 05:55 Eosinophils 4 % (0-5) 08/21/17 05:55 PT 10.3 SECONDS (9.5-11.5) 08/19/17 19:53 INR 0.99 (0.5-1.4) 08/19/17 19:53 Sodium 142 mEq/L (136-145) 08/22/17 05:35 Potassium 4.0 mEq/L (3.5-5.1) 08/22/17 05:35 Chloride 112 mEq/L (98-107) H 08/22/17 05:35 Carbon Dioxide 26.1 mEq/L (21.0-31.0) 08/22/17 05:35 Anion Gap 7.9 (7.0-16.0) 08/22/17 05:35 BUN 8 mg/dL (7-25) 08/22/17 05:35 Creatinine 0.6 mg/dL (0.7-1.3) L 08/22/17 05:35 Est GFR ( Amer) > 60.0 ml/min (>90) 08/22/17 05:35 Est GFR (Non-Af Amer) > 60.0 ml/min 08/22/17 05:35 BUN/Creatinine Ratio 13.3 08/22/17 05:35 Glucose 101 mg/dL (70-105) 08/22/17 05:35 Calcium 8.1 mg/dL (8.6-10.3) L 08/22/17 05:35 Magnesium 2.3 mg/dL (1.9-2.7) 08/20/17 06:00 Total Bilirubin 0.5 mg/dL (0.3-1.0) 08/19/17 19:53 AST 28 U/L (13-39) 08/19/17 19:53 ALT 47 U/L (7-52) 08/19/17 19:53 Alkaline Phosphatase 108 U/L (34-104) H 08/19/17 19:53 Total Protein 7.2 gm/dL (6.0-8.3) 08/19/17 19:53 Albumin 4.0 gm/dL (4.2-5.5) L 08/19/17 19:53 Globulin 3.2 gm/dL 08/19/17 19:53 Albumin/Globulin Ratio 1.3 (1.0-1.8) 08/19/17 19:53 TSH 0.85 uIU/ml (0.34-5.60) 08/20/17 06:00 - Physical Exam Vitals and I&O: Vital Signs Temp 98.8 F 08/22/17 07:50 Pulse 88 08/22/17 07:50 Resp 18 08/22/17 07:50 BP 118/66 08/22/17 07:50 Pulse Ox 99 08/22/17 07:50 Intake & Output 08/21/17 08/22/17 08/22/17 18:59 06:59 18:59 Intake Total 610 40 Output Total 2 Balance 610 38 Weight (lbs) 57.153 kg 57.805 kg Intake: Intake, IV Amount 250 Azithromycin 500 mg In 250 Sodium Chloride 0.9% 250 ml @ 250 mls/hr IV Q24HR [facility] Rx#:[id number] Tube Feeding 360 40 Output: Urine 2 Other: # Voids 5 2 # Bowel Movements 2 1 Active Medications: Current Medications Acetaminophen (Tylenol 650mg/20.3ml Suspension) 650 mg GT Q4H PRN PRN Reason: Pain (Mild) Stop: 10/18/17 23:11 Last Admin: 08/20/17 22:20 Dose: 650 mg Acetaminophen (Tylenol 650mg/20.3ml Suspension) 650 mg GT Q4H PRN PRN Reason: Fever > 101 Stop: 10/18/17 23:11 Alendronate Sodium (Fosamax) 70 mg PO QSUN@0630 [facility] Stop: 10/24/17 06:29 Ascorbic Acid (Vitamin C) 500 mg PO BID [facility] Stop: 10/19/17 08:59 Last Admin: 08/22/17 08:46 Dose: 500 mg Bisacodyl (Dulcolax 10 Mg Supp) 10 mg RC DAILY PRN PRN Reason: Constipation Stop: 10/18/17 22:36 Ferrous Sulfate (Iron) 220 mg GT DAILY [facility] Stop: 10/19/17 08:59 Last Admin: 08/22/17 08:49 Dose: 220 mg Glycopyrrolate (Robinul) 1 mg PO BID [facility] Stop: 10/19/17 08:59 Last Admin: 08/22/17 08:47 Dose: 1 mg Azithromycin 500 mg/ Sodium (Chloride) 250 mls @ 250 mls/hr IV Q24HR [facility] Stop: 10/19/17 10:59 Last Infusion: 08/21/17 18:09 Dose: Infused Dextrose/Sodium Chloride (D5-0.45ns) 1,000 mls @ 70 mls/hr IV .[id number] [facility] Stop: 10/18/17 22:44 Last Admin: 08/21/17 21:50 Dose: 70 mls/hr Magnesium Hydroxide (Milk Of Magnesia) 30 ml GT DAILY PRN PRN Reason: Constipation Stop: 10/18/17 22:36 Metoclopramide HCl (Reglan) 5 mg PO TID [facility] Stop: 08/26/17 13:59 Last Admin: 08/22/17 08:48 Dose: 5 mg Morphine Sulfate (Morphine) 2 mg IVP Q4H PRN PRN Reason: Pain (Severe) Stop: 10/18/17 22:38 Last Admin: 08/21/17 14:54 Dose: 2 mg Ondansetron HCl (Zofran) 4 mg IV Q8H PRN PRN Reason: Nausea / Vomiting Stop: 10/18/17 22:38 Last Admin: 08/21/17 14:53 Dose: 4 mg Oxcarbazepine (Trileptal) 600 mg GT BID [facility] Stop: 10/19/17 08:59 Last Admin: 08/22/17 08:48 Dose: 600 mg Pantoprazole Sodium (Protonix) 40 mg IVP BID [facility] Stop: 10/19/17 08:59 Last Admin: 08/22/17 08:49 Dose: 40 mg Polyethylene Glycol (Miralax) 17 gm GT QPM [facility] Stop: 10/19/17 16:59 Last Admin: 08/20/17 16:44 Dose: 17 gm Sodium Phosphate (Fleet Enema) 135 ml RC DAILY PRN PRN Reason: Constipation Stop: 10/18/17 22:36 General: Alert Neck: Supple Cardiovascular: Regular rate Abdomen: Soft, Other (non tender, no guard, no rebound) - Procedures Procedures: Procedures Procedure Code Date CHANGE GASTROSTOMY TUBE 84724 12/15/01 REPLACE GASTROSTOMY TUBE 97.02 12/15/01 Assessment/Plan - Assessment Assessment: # Coffee ground emesis # Cerebral palsy # Developmental delay # Gtube dependence Discussed with patient's mother, and she does not want endoscopy unless he has further overt GI bleeding or worsening anemia. Will continue to treat with PPI and antiemetic for now Plan: - PPI bid dosing for 1 month, then daily (will treat any gastric ulcer or esophagitis) - reglan iv tid for nausea for 10 days, then dc and use prn only - continue tube feeds as tolerated. Hold for high residuals GI to see as needed, please call with questions
[2017-08-22] MEDS: Azithromycin 500 MG in Sodium Chloride 0.9% 250 ML IV SCH (11:30)
[2017-08-22] MEDS: D5-0.45NS 1,000 ML IV SCH ×2 (11:31)
--- NOTE | 2017-08-22 12:05 | Internal Medicine Prog Note ---
Internal Medicine Subjective - Subjective Service Date: 08/22/17 Patient is:: awake, non-verbal Patient Complaints of:: vomitting Internal Medicine Objective - Results Result Diagrams: 08/22/17 05:35 08/22/17 05:35 Recent Labs: Laboratory Last Values WBC 4.8 Th/cmm (4.8-10.8) D 08/22/17 05:35 RBC 4.77 Mil/cmm (4.30-5.70) 08/22/17 05:35 Hgb 14.4 gm/dL (12-16) 08/22/17 05:35 Hct 41.9 % (41.0-60) 08/22/17 05:35 MCV 87.8 fl (80-99) 08/22/17 05:35 MCH 30.2 pg (26.0-30.0) H 08/22/17 05:35 MCHC Differential 34.3 pg (28.0-36.0) 08/22/17 05:35 RDW 12.2 % (11.5-20.0) 08/22/17 05:35 Plt Count 149 Th/cmm (150-400) L 08/22/17 05:35 MPV 10.8 fl 08/22/17 05:35 Neutrophils % 57.3 % (40.0-80.0) 08/22/17 05:35 Band Neutrophils % 3 % (0-10) 08/21/17 05:55 Lymphocytes % 24.4 % (20.0-50.0) 08/22/17 05:35 Monocytes % 13.5 % (2.0-10.0) H 08/22/17 05:35 Eosinophils % 3.5 % (0.0-5.0) 08/22/17 05:35 Basophils % 1.3 % (0.0-2.0) 08/22/17 05:35 Neutrophils (Manual) 54 % (40-80) 08/21/17 05:55 Lymphocytes 31 % (20-50) 08/21/17 05:55 Monocytes 8 % (2-10) 08/21/17 05:55 Eosinophils 4 % (0-5) 08/21/17 05:55 PT 10.3 SECONDS (9.5-11.5) 08/19/17 19:53 INR 0.99 (0.5-1.4) 08/19/17 19:53 Sodium 142 mEq/L (136-145) 08/22/17 05:35 Potassium 4.0 mEq/L (3.5-5.1) 08/22/17 05:35 Chloride 112 mEq/L (98-107) H 08/22/17 05:35 Carbon Dioxide 26.1 mEq/L (21.0-31.0) 08/22/17 05:35 Anion Gap 7.9 (7.0-16.0) 08/22/17 05:35 BUN 8 mg/dL (7-25) 08/22/17 05:35 Creatinine 0.6 mg/dL (0.7-1.3) L 08/22/17 05:35 Est GFR ( Amer) > 60.0 ml/min (>90) 08/22/17 05:35 Est GFR (Non-Af Amer) > 60.0 ml/min 08/22/17 05:35 BUN/Creatinine Ratio 13.3 08/22/17 05:35 Glucose 101 mg/dL (70-105) 08/22/17 05:35 Calcium 8.1 mg/dL (8.6-10.3) L 08/22/17 05:35 Magnesium 2.3 mg/dL (1.9-2.7) 08/20/17 06:00 Total Bilirubin 0.5 mg/dL (0.3-1.0) 08/19/17 19:53 AST 28 U/L (13-39) 08/19/17 19:53 ALT 47 U/L (7-52) 08/19/17 19:53 Alkaline Phosphatase 108 U/L (34-104) H 08/19/17 19:53 Total Protein 7.2 gm/dL (6.0-8.3) 08/19/17 19:53 Albumin 4.0 gm/dL (4.2-5.5) L 08/19/17 19:53 Globulin 3.2 gm/dL 08/19/17 19:53 Albumin/Globulin Ratio 1.3 (1.0-1.8) 08/19/17 19:53 TSH 0.85 uIU/ml (0.34-5.60) 08/20/17 06:00 - Physical Exam Vitals and I&O: Vital Signs Temp 98.8 F 08/22/17 07:50 Pulse 88 08/22/17 07:50 Resp 18 08/22/17 07:50 BP 118/66 08/22/17 07:50 Pulse Ox 99 08/22/17 07:50 Intake & Output 08/21/17 08/22/17 08/22/17 18:59 06:59 18:59 Intake Total 610 40 957.833 Output Total 2 Balance 610 38 957.833 Weight (lbs) 126 lb 127 lb 7 oz Intake: Intake, IV Amount 250 957.833 Azithromycin 500 mg In 250 Sodium Chloride 0.9% 250 ml @ 250 mls/hr IV Q24HR [facility] Rx#:[id number] D5-0.45NS 1,000 ml @ 70 957.833 mls/hr IV .[id number] [facility] Rx #:[id number] Tube Feeding 360 40 Output: Urine 2 Other: # Voids 5 2 # Bowel Movements 2 1 Active Medications: Current Medications Acetaminophen (Tylenol 650mg/20.3ml Suspension) 650 mg GT Q4H PRN PRN Reason: Pain (Mild) Stop: 10/18/17 23:11 Last Admin: 08/20/17 22:20 Dose: 650 mg Acetaminophen (Tylenol 650mg/20.3ml Suspension) 650 mg GT Q4H PRN PRN Reason: Fever > 101 Stop: 10/18/17 23:11 Alendronate Sodium (Fosamax) 70 mg PO QSUN@0630 [facility] Stop: 10/24/17 06:29 Ascorbic Acid (Vitamin C) 500 mg PO BID [facility] Stop: 10/19/17 08:59 Last Admin: 08/22/17 08:46 Dose: 500 mg Bisacodyl (Dulcolax 10 Mg Supp) 10 mg RC DAILY PRN PRN Reason: Constipation Stop: 10/18/17 22:36 Ferrous Sulfate (Iron) 220 mg GT DAILY [facility] Stop: 10/19/17 08:59 Last Admin: 08/22/17 08:49 Dose: 220 mg Glycopyrrolate (Robinul) 1 mg PO BID [facility] Stop: 10/19/17 08:59 Last Admin: 08/22/17 08:47 Dose: 1 mg Azithromycin 500 mg/ Sodium (Chloride) 250 mls @ 250 mls/hr IV Q24HR [facility] Stop: 10/19/17 10:59 Last Admin: 08/22/17 11:30 Dose: 250 mls/hr Dextrose/Sodium Chloride (D5-0.45ns) 1,000 mls @ 70 mls/hr IV .[id number] [facility] Stop: 10/18/17 22:44 Last Admin: 08/22/17 11:31 Dose: 70 mls/hr Magnesium Hydroxide (Milk Of Magnesia) 30 ml GT DAILY PRN PRN Reason: Constipation Stop: 10/18/17 22:36 Metoclopramide HCl (Reglan) 5 mg PO TID [facility] Stop: 08/26/17 13:59 Last Admin: 08/22/17 08:48 Dose: 5 mg Morphine Sulfate (Morphine) 2 mg IVP Q4H PRN PRN Reason: Pain (Severe) Stop: 10/18/17 22:38 Last Admin: 08/21/17 14:54 Dose: 2 mg Ondansetron HCl (Zofran) 4 mg IV Q8H PRN PRN Reason: Nausea / Vomiting Stop: 10/18/17 22:38 Last Admin: 08/21/17 14:53 Dose: 4 mg Oxcarbazepine (Trileptal) 600 mg GT BID [facility] Stop: 10/19/17 08:59 Last Admin: 08/22/17 08:48 Dose: 600 mg Pantoprazole Sodium (Protonix) 40 mg IVP BID [facility] Stop: 10/19/17 08:59 Last Admin: 08/22/17 08:49 Dose: 40 mg Polyethylene Glycol (Miralax) 17 gm GT QPM [facility] Stop: 10/19/17 16:59 Last Admin: 08/20/17 16:44 Dose: 17 gm Sodium Phosphate (Fleet Enema) 135 ml RC DAILY PRN PRN Reason: Constipation Stop: 10/18/17 22:36 General: weak, alert HEENT: NC/AT, PERRLA Neck: Supple Lungs: CTAB Cardiovascular: Normal S1, Normal S2, without murmur Abdomen: soft, non-tender, non-distended, positive bowel sound Extremities: excoriation - Procedures Procedures: Procedures Procedure Code Date CHANGE GASTROSTOMY TUBE 65661 12/15/01 REPLACE GASTROSTOMY TUBE 97.02 03/04/02 Internal Medicine Assmt/Plan - Assessment Assessment: [facility]NA ACUTE GI BLEED ANEMIA CEREBRAL PALSY SEIZURES OSTEOPOROSIS HIATAL HERNIA GERD - Plan Plan: CT chest for today continue ivf for hydration reglan iv as per gi monitor electrolytes am labs continue current plan of care Nutritional Asmnt/Malnutr-PDOC - Dietary Evaluation Malnutrition Findings (Please click <Entered> for more info): Nutritional Asmnt/Malnutrition Start: 08/20/17 16: 45 Text: Status: Active Freq: Document 08/20/17 16:45 AMBER (Rec: 08/20/17 [facility]:06 [email or web address] Nutritional Asmnt/Malnutrition Patient General Information Nutritional Screening High Risk Diagnosis Upper GI bleeding Pertinent Medical Hx/Surgical Hx PUD/GERD, seizure, osteoporosis, peptic ulcer, anemia, cerebral palsy, PEG Subjective Information Pt from SNF was admitted for GI bleeding. Per nurse, no episodes of pain, emesis today . Tube started this morning from 10ml/hr, currently running at 20ml/hr during the time of visit. Spoke with RN, pt is tolerating well, 40ml residual, increase to goal rate this afternoon. Current Diet Order/ Nutrition Support Nutren 2.0 40ml/hr x 15hrs daily providing 1200kcal, 50g pro Pertinent Medications Vit C, D5, Miralax Pertinent Labs 08/20: Na, 134L, K 3.7, Cl 107, BUN 15, Cr 0.7, Ca 8.3L, Alb 4.0L 08/19: Cr 0.6 Nutritional Hx/Data Height 5 ft 3 in Height (Calculated Centimeters) 160.0 Current Weight (lbs) 123 lb Weight (Calculated Kilograms) 55.8 Weight (Calculated Grams) 40454.9 [place] Body Weight 124 % [place] Body Weight 100 Body Mass Index (BMI) 21.7 Recent Weight Change No Weight Status Approriate GI Symptoms GI Symptoms None Food Allergies No Skin Integrity/Comment: intact Estimated Nutritional Goals BEE in Kcals: Using Current wt Calories/Kcals/Kg 25-30 Kcals Calculated 1165-0092 Protein: Using Current wt Protein g/k Protein Calculated 60 Fluid: ml 1500-1800ml (1ml/kcal) Nutritional Problem 1. Problem Problem inadequate enteral intake Etiology current nutrition support not meeting 100% nutritional needs Signs/Symptoms: TF providing 80% of estimated nutritional needs Malnutrition Alert Protein-Calorie Malnutrition N/A Is there a minimum of two criteria No selected? Query Text:Check all the applicable criteria. A minimum of two criteria are recommended for diagnosis of either severe or non-severe malnutrition. Intervention/Recommendation Recommendations by RD Increase Calorie Intake Comments 1. Recommend TF Nutren 2.0 40ml/hr x 18hr daily. This provides 1440kcal, 60g pro, meeting 100% of nutritional needs 2. Moniotr TF tolerance, residuals 3. Monitor GI symptoms, wt weekly, labs 4. F/U as high risk in 2-3 days, 08/22-08/23 Expected Outcomes/Goals Expected Outcomes/Goals 1. Pt to meet 100% nutritional needs with tolerance 2. GI symptoms to WNL 3. Wt stability, skin to remain intact, labs to improve
--- NOTE | 2017-08-22 12:05 | Internal Medicine Prog Note ---
Internal Medicine Subjective - Subjective Service Date: 08/22/17 Patient is:: awake, non-verbal Patient Complaints of:: vomitting Internal Medicine Objective - Results Result Diagrams: 08/22/17 05:35 08/22/17 05:35 Recent Labs: Laboratory Last Values WBC 4.8 Th/cmm (4.8-10.8) D 08/22/17 05:35 RBC 4.77 Mil/cmm (4.30-5.70) 08/22/17 05:35 Hgb 14.4 gm/dL (12-16) 08/22/17 05:35 Hct 41.9 % (41.0-60) 08/22/17 05:35 MCV 87.8 fl (80-99) 08/22/17 05:35 MCH 30.2 pg (26.0-30.0) H 08/22/17 05:35 MCHC Differential 34.3 pg (28.0-36.0) 08/22/17 05:35 RDW 12.2 % (11.5-20.0) 08/22/17 05:35 Plt Count 149 Th/cmm (150-400) L 08/22/17 05:35 MPV 10.8 fl 08/22/17 05:35 Neutrophils % 57.3 % (40.0-80.0) 08/22/17 05:35 Band Neutrophils % 3 % (0-10) 08/21/17 05:55 Lymphocytes % 24.4 % (20.0-50.0) 08/22/17 05:35 Monocytes % 13.5 % (2.0-10.0) H 08/22/17 05:35 Eosinophils % 3.5 % (0.0-5.0) 08/22/17 05:35 Basophils % 1.3 % (0.0-2.0) 08/22/17 05:35 Neutrophils (Manual) 54 % (40-80) 08/21/17 05:55 Lymphocytes 31 % (20-50) 08/21/17 05:55 Monocytes 8 % (2-10) 08/21/17 05:55 Eosinophils 4 % (0-5) 08/21/17 05:55 PT 10.3 SECONDS (9.5-11.5) 08/19/17 19:53 INR 0.99 (0.5-1.4) 08/19/17 19:53 Sodium 142 mEq/L (136-145) 08/22/17 05:35 Potassium 4.0 mEq/L (3.5-5.1) 08/22/17 05:35 Chloride 112 mEq/L (98-107) H 08/22/17 05:35 Carbon Dioxide 26.1 mEq/L (21.0-31.0) 08/22/17 05:35 Anion Gap 7.9 (7.0-16.0) 08/22/17 05:35 BUN 8 mg/dL (7-25) 08/22/17 05:35 Creatinine 0.6 mg/dL (0.7-1.3) L 08/22/17 05:35 Est GFR ( Amer) > 60.0 ml/min (>90) 08/22/17 05:35 Est GFR (Non-Af Amer) > 60.0 ml/min 08/22/17 05:35 BUN/Creatinine Ratio 13.3 08/22/17 05:35 Glucose 101 mg/dL (70-105) 08/22/17 05:35 Calcium 8.1 mg/dL (8.6-10.3) L 08/22/17 05:35 Magnesium 2.3 mg/dL (1.9-2.7) 08/20/17 06:00 Total Bilirubin 0.5 mg/dL (0.3-1.0) 08/19/17 19:53 AST 28 U/L (13-39) 08/19/17 19:53 ALT 47 U/L (7-52) 08/19/17 19:53 Alkaline Phosphatase 108 U/L (34-104) H 08/19/17 19:53 Total Protein 7.2 gm/dL (6.0-8.3) 08/19/17 19:53 Albumin 4.0 gm/dL (4.2-5.5) L 08/19/17 19:53 Globulin 3.2 gm/dL 08/19/17 19:53 Albumin/Globulin Ratio 1.3 (1.0-1.8) 08/19/17 19:53 TSH 0.85 uIU/ml (0.34-5.60) 08/20/17 06:00 - Physical Exam Vitals and I&O: Vital Signs Temp 98.8 F 08/22/17 07:50 Pulse 88 08/22/17 07:50 Resp 18 08/22/17 07:50 BP 118/66 08/22/17 07:50 Pulse Ox 99 08/22/17 07:50 Intake & Output 08/21/17 08/22/17 08/22/17 18:59 06:59 18:59 Intake Total 610 40 957.833 Output Total 2 Balance 610 38 957.833 Weight (lbs) 126 lb 127 lb 7 oz Intake: Intake, IV Amount 250 957.833 Azithromycin 500 mg In 250 Sodium Chloride 0.9% 250 ml @ 250 mls/hr IV Q24HR [facility] Rx#:[id number] D5-0.45NS 1,000 ml @ 70 957.833 mls/hr IV .[id number] [facility] Rx #:[id number] Tube Feeding 360 40 Output: Urine 2 Other: # Voids 5 2 # Bowel Movements 2 1 Active Medications: Current Medications Acetaminophen (Tylenol 650mg/20.3ml Suspension) 650 mg GT Q4H PRN PRN Reason: Pain (Mild) Stop: 10/18/17 23:11 Last Admin: 08/20/17 22:20 Dose: 650 mg Acetaminophen (Tylenol 650mg/20.3ml Suspension) 650 mg GT Q4H PRN PRN Reason: Fever > 101 Stop: 10/18/17 23:11 Alendronate Sodium (Fosamax) 70 mg PO QSUN@0630 [facility] Stop: 10/24/17 06:29 Ascorbic Acid (Vitamin C) 500 mg PO BID [facility] Stop: 10/19/17 08:59 Last Admin: 08/22/17 08:46 Dose: 500 mg Bisacodyl (Dulcolax 10 Mg Supp) 10 mg RC DAILY PRN PRN Reason: Constipation Stop: 10/18/17 22:36 Ferrous Sulfate (Iron) 220 mg GT DAILY [facility] Stop: 10/19/17 08:59 Last Admin: 08/22/17 08:49 Dose: 220 mg Glycopyrrolate (Robinul) 1 mg PO BID [facility] Stop: 10/19/17 08:59 Last Admin: 08/22/17 08:47 Dose: 1 mg Azithromycin 500 mg/ Sodium (Chloride) 250 mls @ 250 mls/hr IV Q24HR [facility] Stop: 10/19/17 10:59 Last Admin: 08/22/17 11:30 Dose: 250 mls/hr Dextrose/Sodium Chloride (D5-0.45ns) 1,000 mls @ 70 mls/hr IV .[id number] [facility] Stop: 10/18/17 22:44 Last Admin: 08/22/17 11:31 Dose: 70 mls/hr Magnesium Hydroxide (Milk Of Magnesia) 30 ml GT DAILY PRN PRN Reason: Constipation Stop: 10/18/17 22:36 Metoclopramide HCl (Reglan) 5 mg PO TID [facility] Stop: 08/26/17 13:59 Last Admin: 08/22/17 08:48 Dose: 5 mg Morphine Sulfate (Morphine) 2 mg IVP Q4H PRN PRN Reason: Pain (Severe) Stop: 10/18/17 22:38 Last Admin: 08/21/17 14:54 Dose: 2 mg Ondansetron HCl (Zofran) 4 mg IV Q8H PRN PRN Reason: Nausea / Vomiting Stop: 10/18/17 22:38 Last Admin: 08/21/17 14:53 Dose: 4 mg Oxcarbazepine (Trileptal) 600 mg GT BID [facility] Stop: 10/19/17 08:59 Last Admin: 08/22/17 08:48 Dose: 600 mg Pantoprazole Sodium (Protonix) 40 mg IVP BID [facility] Stop: 10/19/17 08:59 Last Admin: 08/22/17 08:49 Dose: 40 mg Polyethylene Glycol (Miralax) 17 gm GT QPM [facility] Stop: 10/19/17 16:59 Last Admin: 08/20/17 16:44 Dose: 17 gm Sodium Phosphate (Fleet Enema) 135 ml RC DAILY PRN PRN Reason: Constipation Stop: 10/18/17 22:36 General: weak, alert HEENT: NC/AT, PERRLA Neck: Supple Lungs: CTAB Cardiovascular: Normal S1, Normal S2, without murmur Abdomen: soft, non-tender, non-distended, positive bowel sound Extremities: excoriation - Procedures Procedures: Procedures Procedure Code Date CHANGE GASTROSTOMY TUBE 10028 12/15/01 REPLACE GASTROSTOMY TUBE 97.02 03/04/02 Internal Medicine Assmt/Plan - Assessment Assessment: [facility]NA ACUTE GI BLEED ANEMIA CEREBRAL PALSY SEIZURES OSTEOPOROSIS HIATAL HERNIA GERD - Plan Plan: CT chest for today continue ivf for hydration reglan iv as per gi monitor electrolytes am labs continue current plan of care Nutritional Asmnt/Malnutr-PDOC - Dietary Evaluation Malnutrition Findings (Please click <Entered> for more info): Nutritional Asmnt/Malnutrition Start: 08/20/17 16: 45 Text: Status: Active Freq: Document 08/20/17 16:45 AMBER (Rec: 08/20/17 17:06 [email or web address] Nutritional Asmnt/Malnutrition Patient General Information Nutritional Screening High Risk Diagnosis Upper GI bleeding Pertinent Medical Hx/Surgical Hx PUD/GERD, seizure, osteoporosis, peptic ulcer, anemia, cerebral palsy, PEG Subjective Information Pt from SNF was admitted for GI bleeding. Per nurse, no episodes of pain, emesis today . Tube started this morning from 10ml/hr, currently running at 20ml/hr during the time of visit. Spoke with RN, pt is tolerating well, 40ml residual, increase to goal rate this afternoon. Current Diet Order/ Nutrition Support Nutren 2.0 40ml/hr x 15hrs daily providing 1200kcal, 50g pro Pertinent Medications Vit C, D5, Miralax Pertinent Labs 08/20: Na, 134L, K 3.7, Cl 107, BUN 15, Cr 0.7, Ca 8.3L, Alb 4.0L 08/19: Cr 0.6 Nutritional Hx/Data Height 5 ft 3 in Height (Calculated Centimeters) 160.0 Current Weight (lbs) 123 lb Weight (Calculated Kilograms) 55.8 Weight (Calculated Grams) 85727.9 [place] Body Weight 124 % [place] Body Weight 100 Body Mass Index (BMI) 21.7 Recent Weight Change No Weight Status Approriate GI Symptoms GI Symptoms None Food Allergies No Skin Integrity/Comment: intact Estimated Nutritional Goals BEE in Kcals: Using Current wt Calories/Kcals/Kg 25-30 Kcals Calculated 8549-7129 Protein: Using Current wt Protein g/k Protein Calculated 60 Fluid: ml 1500-1800ml (1ml/kcal) Nutritional Problem 1. Problem Problem inadequate enteral intake Etiology current nutrition support not meeting 100% nutritional needs Signs/Symptoms: TF providing 80% of estimated nutritional needs Malnutrition Alert Protein-Calorie Malnutrition N/A Is there a minimum of two criteria No selected? Query Text:Check all the applicable criteria. A minimum of two criteria are recommended for diagnosis of either severe or non-severe malnutrition. Intervention/Recommendation Recommendations by RD Increase Calorie Intake Comments 1. Recommend TF Nutren 2.0 40ml/hr x 18hr daily. This provides 1440kcal, 60g pro, meeting 100% of nutritional needs 2. Moniotr TF tolerance, residuals 3. Monitor GI symptoms, wt weekly, labs 4. F/U as high risk in 2-3 days, 08/22-08/23 Expected Outcomes/Goals Expected Outcomes/Goals 1. Pt to meet 100% nutritional needs with tolerance 2. GI symptoms to WNL 3. Wt stability, skin to remain intact, labs to improve
--- NOTE | 2017-08-22 12:05 | Internal Medicine Prog Note ---
Internal Medicine Subjective - Subjective Service Date: 08/22/17 Patient is:: awake, non-verbal Patient Complaints of:: vomitting Internal Medicine Objective - Results Result Diagrams: 08/22/17 05:35 08/22/17 05:35 Recent Labs: Laboratory Last Values WBC 4.8 Th/cmm (4.8-10.8) D 08/22/17 05:35 RBC 4.77 Mil/cmm (4.30-5.70) 08/22/17 05:35 Hgb 14.4 gm/dL (12-16) 08/22/17 05:35 Hct 41.9 % (41.0-60) 08/22/17 05:35 MCV 87.8 fl (80-99) 08/22/17 05:35 MCH 30.2 pg (26.0-30.0) H 08/22/17 05:35 MCHC Differential 34.3 pg (28.0-36.0) 08/22/17 05:35 RDW 12.2 % (11.5-20.0) 08/22/17 05:35 Plt Count 149 Th/cmm (150-400) L 08/22/17 05:35 MPV 10.8 fl 08/22/17 05:35 Neutrophils % 57.3 % (40.0-80.0) 08/22/17 05:35 Band Neutrophils % 3 % (0-10) 08/21/17 05:55 Lymphocytes % 24.4 % (20.0-50.0) 08/22/17 05:35 Monocytes % 13.5 % (2.0-10.0) H 08/22/17 05:35 Eosinophils % 3.5 % (0.0-5.0) 08/22/17 05:35 Basophils % 1.3 % (0.0-2.0) 08/22/17 05:35 Neutrophils (Manual) 54 % (40-80) 08/21/17 05:55 Lymphocytes 31 % (20-50) 08/21/17 05:55 Monocytes 8 % (2-10) 08/21/17 05:55 Eosinophils 4 % (0-5) 08/21/17 05:55 PT 10.3 SECONDS (9.5-11.5) 08/19/17 19:53 INR 0.99 (0.5-1.4) 08/19/17 19:53 Sodium 142 mEq/L (136-145) 08/22/17 05:35 Potassium 4.0 mEq/L (3.5-5.1) 08/22/17 05:35 Chloride 112 mEq/L (98-107) H 08/22/17 05:35 Carbon Dioxide 26.1 mEq/L (21.0-31.0) 08/22/17 05:35 Anion Gap 7.9 (7.0-16.0) 08/22/17 05:35 BUN 8 mg/dL (7-25) 08/22/17 05:35 Creatinine 0.6 mg/dL (0.7-1.3) L 08/22/17 05:35 Est GFR ( Amer) > 60.0 ml/min (>90) 08/22/17 05:35 Est GFR (Non-Af Amer) > 60.0 ml/min 08/22/17 05:35 BUN/Creatinine Ratio 13.3 08/22/17 05:35 Glucose 101 mg/dL (70-105) 08/22/17 05:35 Calcium 8.1 mg/dL (8.6-10.3) L 08/22/17 05:35 Magnesium 2.3 mg/dL (1.9-2.7) 08/20/17 06:00 Total Bilirubin 0.5 mg/dL (0.3-1.0) 08/19/17 19:53 AST 28 U/L (13-39) 08/19/17 19:53 ALT 47 U/L (7-52) 08/19/17 19:53 Alkaline Phosphatase 108 U/L (34-104) H 08/19/17 19:53 Total Protein 7.2 gm/dL (6.0-8.3) 08/19/17 19:53 Albumin 4.0 gm/dL (4.2-5.5) L 08/19/17 19:53 Globulin 3.2 gm/dL 08/19/17 19:53 Albumin/Globulin Ratio 1.3 (1.0-1.8) 08/19/17 19:53 TSH 0.85 uIU/ml (0.34-5.60) 08/20/17 06:00 - Physical Exam Vitals and I&O: Vital Signs Temp 98.8 F 08/22/17 07:50 Pulse 88 08/22/17 07:50 Resp 18 08/22/17 07:50 BP 118/66 08/22/17 07:50 Pulse Ox 99 08/22/17 07:50 Intake & Output 08/21/17 08/22/17 08/22/17 18:59 06:59 18:59 Intake Total 610 40 957.833 Output Total 2 Balance 610 38 957.833 Weight (lbs) 126 lb 127 lb 7 oz Intake: Intake, IV Amount 250 957.833 Azithromycin 500 mg In 250 Sodium Chloride 0.9% 250 ml @ 250 mls/hr IV Q24HR [facility] Rx#:[id number] D5-0.45NS 1,000 ml @ 70 957.833 mls/hr IV .[id number] [facility] Rx #:[id number] Tube Feeding 360 40 Output: Urine 2 Other: # Voids 5 2 # Bowel Movements 2 1 Active Medications: Current Medications Acetaminophen (Tylenol 650mg/20.3ml Suspension) 650 mg GT Q4H PRN PRN Reason: Pain (Mild) Stop: 10/18/17 23:11 Last Admin: 08/20/17 22:20 Dose: 650 mg Acetaminophen (Tylenol 650mg/20.3ml Suspension) 650 mg GT Q4H PRN PRN Reason: Fever > 101 Stop: 10/18/17 23:11 Alendronate Sodium (Fosamax) 70 mg PO QSUN@0630 [facility] Stop: 10/24/17 06:29 Ascorbic Acid (Vitamin C) 500 mg PO BID [facility] Stop: 10/19/17 08:59 Last Admin: 08/22/17 08:46 Dose: 500 mg Bisacodyl (Dulcolax 10 Mg Supp) 10 mg RC DAILY PRN PRN Reason: Constipation Stop: 10/18/17 22:36 Ferrous Sulfate (Iron) 220 mg GT DAILY [facility] Stop: 10/19/17 08:59 Last Admin: 08/22/17 08:49 Dose: 220 mg Glycopyrrolate (Robinul) 1 mg PO BID [facility] Stop: 10/19/17 08:59 Last Admin: 08/22/17 08:47 Dose: 1 mg Azithromycin 500 mg/ Sodium (Chloride) 250 mls @ 250 mls/hr IV Q24HR [facility] Stop: 10/19/17 10:59 Last Admin: 08/22/17 11:30 Dose: 250 mls/hr Dextrose/Sodium Chloride (D5-0.45ns) 1,000 mls @ 70 mls/hr IV .[id number] [facility] Stop: 10/18/17 22:44 Last Admin: 08/22/17 11:31 Dose: 70 mls/hr Magnesium Hydroxide (Milk Of Magnesia) 30 ml GT DAILY PRN PRN Reason: Constipation Stop: 10/18/17 22:36 Metoclopramide HCl (Reglan) 5 mg PO TID [facility] Stop: 08/26/17 13:59 Last Admin: 08/22/17 08:48 Dose: 5 mg Morphine Sulfate (Morphine) 2 mg IVP Q4H PRN PRN Reason: Pain (Severe) Stop: 10/18/17 22:38 Last Admin: 08/21/17 14:54 Dose: 2 mg Ondansetron HCl (Zofran) 4 mg IV Q8H PRN PRN Reason: Nausea / Vomiting Stop: 10/18/17 22:38 Last Admin: 08/21/17 14:53 Dose: 4 mg Oxcarbazepine (Trileptal) 600 mg GT BID [facility] Stop: 10/19/17 08:59 Last Admin: 08/22/17 08:48 Dose: 600 mg Pantoprazole Sodium (Protonix) 40 mg IVP BID [facility] Stop: 10/19/17 08:59 Last Admin: 08/22/17 08:49 Dose: 40 mg Polyethylene Glycol (Miralax) 17 gm GT QPM [facility] Stop: 10/19/17 16:59 Last Admin: 08/20/17 16:44 Dose: 17 gm Sodium Phosphate (Fleet Enema) 135 ml RC DAILY PRN PRN Reason: Constipation Stop: 10/18/17 22:36 General: weak, alert HEENT: NC/AT, PERRLA Neck: Supple Lungs: CTAB Cardiovascular: Normal S1, Normal S2, without murmur Abdomen: soft, non-tender, non-distended, positive bowel sound Extremities: excoriation - Procedures Procedures: Procedures Procedure Code Date CHANGE GASTROSTOMY TUBE 99117 12/15/01 REPLACE GASTROSTOMY TUBE 97.02 03/04/02 Internal Medicine Assmt/Plan - Assessment Assessment: [facility] ACUTE GI BLEED ANEMIA CEREBRAL PALSY SEIZURES OSTEOPOROSIS HIATAL HERNIA GERD - Plan Plan: CT chest for today continue ivf for hydration reglan iv as per gi monitor electrolytes am labs continue current plan of care Nutritional Asmnt/Malnutr-PDOC - Dietary Evaluation Malnutrition Findings (Please click <Entered> for more info): Nutritional Asmnt/Malnutrition Start: 08/20/17 16: 45 Text: Status: Active Freq: Document 08/20/17 16:45 AMBER (Rec: 08/20/17 17:06 [id number] Nutritional Asmnt/Malnutrition Patient General Information Nutritional Screening High Risk Diagnosis Upper GI bleeding Pertinent Medical Hx/Surgical Hx PUD/GERD, seizure, osteoporosis, peptic ulcer, anemia, cerebral palsy, PEG Subjective Information Pt from SNF was admitted for GI bleeding. Per nurse, no episodes of pain, emesis today . Tube started this morning from 10ml/hr, currently running at 20ml/hr during the time of visit. Spoke with RN, pt is tolerating well, 40ml residual, increase to goal rate this afternoon. Current Diet Order/ Nutrition Support Nutren 2.0 40ml/hr x 15hrs daily providing 1200kcal, 50g pro Pertinent Medications Vit C, D5, Miralax Pertinent Labs 08/20: Na, 134L, K 3.7, Cl 107, BUN 15, Cr 0.7, Ca 8.3L, Alb 4.0L 08/19: Cr 0.6 Nutritional Hx/Data Height 5 ft 3 in Height (Calculated Centimeters) 160.0 Current Weight (lbs) 123 lb Weight (Calculated Kilograms) 55.8 Weight (Calculated Grams) 40811.9 [place] Body Weight 124 % [place] Body Weight 100 Body Mass Index (BMI) 21.7 Recent Weight Change No Weight Status Approriate GI Symptoms GI Symptoms None Food Allergies No Skin Integrity/Comment: intact Estimated Nutritional Goals BEE in Kcals: Using Current wt Calories/Kcals/Kg 25-30 Kcals Calculated 5584-8938 Protein: Using Current wt Protein g/k Protein Calculated 60 Fluid: ml 1500-1800ml (1ml/kcal) Nutritional Problem 1. Problem Problem inadequate enteral intake Etiology current nutrition support not meeting 100% nutritional needs Signs/Symptoms: TF providing 80% of estimated nutritional needs Malnutrition Alert Protein-Calorie Malnutrition N/A Is there a minimum of two criteria No selected? Query Text:Check all the applicable criteria. A minimum of two criteria are recommended for diagnosis of either severe or non-severe malnutrition. Intervention/Recommendation Recommendations by RD Increase Calorie Intake Comments 1. Recommend TF Nutren 2.0 40ml/hr x 18hr daily. This provides 1440kcal, 60g pro, meeting 100% of nutritional needs 2. Moniotr TF tolerance, residuals 3. Monitor GI symptoms, wt weekly, labs 4. F/U as high risk in 2-3 days, 08/22-08/23 Expected Outcomes/Goals Expected Outcomes/Goals 1. Pt to meet 100% nutritional needs with tolerance 2. GI symptoms to WNL 3. Wt stability, skin to remain intact, labs to improve
--- NOTE | 2017-08-22 14:08 | Diagnostic Imaging Report ---
CT Chest without IV contrast HISTORY: Pneumonia COMPARISON: Chest x-ray on 08/22/2017. Technique: Axial images were obtained from the base of the neck to the upper abdomen without IV contrast. Reconstructions were made. Total DLP to 69, CTD I 7.6 Findings: Evaluation of the mediastinum is limited due to lack of IV contrast. Indeterminate 2.2 x 1.5 cm fluid density is noted along the prevascular space on the left side adjacent to the aortic arch. Trace pericardial fluid is noted Subcentimeter mediastinal lymph nodes are noted. Heart size is normal. No evidence of an aortic aneurysm. A moderate-sized hiatal hernia is noted. Mild atherosclerotic vascular disease. The lung parra demonstrate hypoventilatory and atelectatic changes. Focal passive atelectatic and consolidative changes of the inferior aspect of the right middle lobe are also noted. No pleural effusions. The upper abdomen demonstrates a percutaneous gastrostomy tube. Fluid distended loops of large bowel are partially visualized. Mild inflammatory changes of the mesentery are seen with mildly prominent mesenteric lymph nodes. There is a 1.2 cm low-density left renal lesion probably representing a cyst. Additional subcentimeter lesion of the right kidney is noted to small to characterize but possibly representing a cyst. Mild degenerative changes of the spine are noted. Moderate compression deformity of T6 is noted which appears to be chronic. Mild chronic compression deformity of T8 is also noted. IMPRESSION: Hypoventilatory and atelectatic lung changes with mild passive atelectatic and consolidative changes of the anterior aspect of the right middle lobe. Moderate sized hiatal hernia. 2.2 x 1.5 cm fluid density focus seen along the the prevascular space on the left side. Etiology uncertain but may be due to previous inflammatory process or incidental fluid in the aortic recesses. Mild inflammatory changes of the mesentery with mildly prominent mesenteric lymph nodes possibly due to mesenteric adenitis. Please correlate clinically. Left renal low-density lesions suggestive of cysts and additional small right renal lesion too small to characterize. Consider short-term follow-up with ultrasound.
[2017-08-22] MEDS: POLYETHYLENE GLYCOL 3350 17 GM PACK GT SCH ×2 (17:20)
== END 2017-08-22 20:05 | disposition home or self-care (01) | DRG 377 ==
LOC: ER 18:33 → MSI 21:00
PROVIDERS: ADMIT Internal Medicine; ATTEND Internal Medicine
DX: K92.2 Gastrointestinal hemorrhage, unspecified (principal); J18.9 Pneumonia, unspecified organism; F73 Profound intellectual disabilities; E87.1 Hypo-osmolality and hyponatremia; E83.51 Hypocalcemia; G80.9 Cerebral palsy, unspecified; Y95 Nosocomial condition; K44.9 Diaphragmatic hernia without obstruction or gangrene; G40.909 Epilepsy, unspecified, not intractable, without status epilepticus; M81.0 Age-related osteoporosis without current pathological fracture; K21.9 Gastro-esophageal reflux disease without esophagitis; D64.9 Anemia, unspecified; Z93.1 Gastrostomy status
CPT/HCPCS: 36415-UA; 71010-TC; 71250-TC; 80048-TC; 80053-TC; 83735-TC; 84443-TC; 85007-TC; 85025-TC; 85027-TC; 85610-TC; 93005; C9113; J0456; J2060; J2270; J2405; J7030; X7704; Z7610